=== PATIENT | female | born 1970 | race Caucasian/White ===

== ENCOUNTER 2025-06-19 21:12 | Inpatient (IN) | payer BC, SELFPAY ==
[2025-06-19] VITALS (16 sets, daily range): BP systolic 145–178; BP diastolic 77–110; BMI 31.0; BMI 30.2
[2025-06-19 10:47] LABS: Glucose - Point of Care 547 mg/dl (70-99)
[2025-06-19 12:01] LABS: Hematocrit 32.9 % (37.0-47.0); Hemoglobin 11.2 g/dL (12.0-16.0); Mean Corp Hgb Conc. 34.0 g/dL (33.0-37.0); Mean Corpuscular Volume 79.7 fL (81.0-99.0); Nucleated Red Blood Cells % 0 %; Red Cell Dist. Width 14.8 % (11.5-14.5)
[2025-06-19 12:24] LABS: ALT (SGPT) 17 U/L (0-35); AST (SGOT) 24 U/L (14-36); Albumin 3.7 g/dl (3.5-5.0); Alkaline Phosphatase 163 U/L (38-126); Blood Urea Nitrogen 9 mg/dl (7-17); Calcium 9.6 mg/dl (8.4-10.2); Carbon Dioxide 25 mmol/L (22-30); Chloride 96 mmol/L (98-107); Estimated Creatinine Clearance 102 ml/min; Glucose 522 mg/dl (70-99); Lipase 65 U/L (23-300); Potassium 5.0 mmol/L (3.5-5.1); Sodium 129 mmol/L (135-145); Total Protein 6.8 g/dl (6.3-8.2); eGFR > 60.00
[2025-06-19 12:35] LABS: Platelet Count 350 10^3/uL (130-400)
[2025-06-19 13:54] LABS: Urine Character Clear (Clear)
[2025-06-19 14:02] LABS: Urine Squamous Cell 16-20 /LPF (Few)
[2025-06-19 14:03] LABS: Urine White Cell 0-2 /HPF (0-5); Venous Blood Gas B.E. 3.9 mmol/L (-4 to +4); Venous Blood Gas O2 Sat % 88.4 %
--- NOTE | 2025-06-19 14:17 | ED.GENMED ---
History of Present Illness
<Erasmo Fraga Jr., PA-C - Last Filed: 06/27/25 19:42>
General
Chief Complaint: Fever
Source: patient, spouse and family
Exam Limitations: none
Time Seen by Provider: 06/19/25 10:53
Nursing documentation reviewed up to this point in time: agreed with
History of Present Illness
History of Present Illness:
55-year-old female past with history of previous stroke, CHF CAD hypertension, diabetes mitral valve replacement this year [facility] presenting to the emergency department today with concerns of ongoing abdominal pain nausea vomiting
diarrhea over the past month or so. Had diagnosed appendicitis 1 month ago was seen at [facility] treated with IV antibiotics and also treated for DKA at the time. Was discharged afterward on oral antibiotics she claims that she had no
specific follow-up that was recommended from [facility]. She then saw her primary care doctor the recommended seeing a surgeon. The surgeon that she saw claimed that she did have appendicitis and would need removal and also would need a drain for an
abdominal abscess. For unclear reasons she never followed up for this but is now coming to the ER here today with terms of ongoing symptoms. Additionally her home care nurse recommended coming to [place] due to its affiliation with [facility]
concerning her heart valve replacement was done at [facility].
Review of Systems
<Erasmo Fraga Jr., PA-C - Last Filed: 06/27/25 19:42>
Review of Systems
Allergies reviewed?: Yes
All Other Systems: ROS reviewed and negative except as documented in HPI and ROS
Phy Exam
<Erasmo Fraga Jr., PA-C - Last Filed: 06/27/25 19:42>
Physical Exam
Physical Exam:
GENERAL: Alert , in no apparent distress
EYE: pupils equal and reactive
NECK: Supple, no significant adenopathy.
ENT: o/p clr, mmm.
CARDIAC: Regular rate and rhythm .
LUNGS: Clear breath sounds bilaterally, no acute respiratory distress, no wheezes/rales/rhonchi
ABDOMEN: Abdominal pain throughout the lower abdomen as well as the right side of the abdomen. No rigidity no peritoneal signs
NEUROLOGICAL: Alert and oriented, no focal neuro deficits
SKIN: Warm and dry, skin intact.
MUSCULOSKELETAL: No edema, well perfused.
PSYCH: Normal and appropriate interaction.
Course
<Erasmo Fraga Jr., DOUGLAS - Last Filed: 06/27/25 19:42>
Orders/Labs/Results
Orders:
Orders
06/19/25 11:09
0.9% Sodium Chloride 1000 ml [Nss] 1,000 ml IV BOLUS
06/19/25 11:24
B-Hydroxybutyrate Urgent
Complete Blood Count/With Diff Urgent
Comprehensive Metabolic Panel Urgent
Lactic Acid Urgent
Lipase Urgent
06/19/25 13:31
Urinalysis Reflex To Culture Urgent
Date Specimen was Collected: 06/19/25
Time Specimen was Collected: 13:27
Urine Microscopic Reflex Cult Urgent
Venous Blood Gas Urgent
06/19/25 14:03
CT Abd/Pel (IV only)-DH only Urgent
Comment:
Reason For Exam: lower abd pain, recent appendicitis no surgery
06/19/25 14:08
Bedside Glucose- Treatment Q1H
Insulin Human Regular [Novolin R] 8 units IV NOW STA
06/19/25 Dinner
2000 calorie (17 carb) Diabetic
At Your Request: Full Participation
Does patient need a safe tray?: No
06/19/25 17:11
US Pelvis W Transvag Combined Urgent
Comment:
Reason For Exam: ovarian cyst vs abscess vs appendicitis
06/19/25 20:46
Admit/Transfer Patient As Directed
Co-Sign Provider:
Level of Care: Inpatient admission
Assign to:: Medical/Surgical
Physician / Group: emma
Diagnosis: adnexal abscesses
Reason for Hospitalization: adnexal abscesses
Expected length of stay greater than two midnights?: Yes
ELOS- Estimated Length of Stay in days: 2
I certify the patient meets the requirements for IP care: Yes
06/19/25 20:47
Code Status As Directed
Resuscitation Status: Full Code
PRN Pain Medication Management As Directed
May give lesser potent ordered pain med per pt: Yes
preference::
Protocol:: Medication orders for pain may be administered in a
manner that supports deferring to patient preference
when the pt is:
- Requesting an ordered lesser potent pain medication.
Least to most potent pain medications are defined
as: acetaminophen < NSAID < tramadol < opioids
(morphine, oxycodone, hydromorphone).
- Requesting a lesser dose of the same medication IF
ORDERED.
- Requesting a less intrusive route of administration
if both routes are prescribed by the provider (PO <
IV).
06/19/25 21:44
Blood Culture Q30M
ALEXANDRE Source: Blood/Venous
Specimen Description:
06/19/25 21:52
Blood Culture Q30M
ALEXANDRE Source: Blood/Venous
Specimen Description:
06/19/25 22:43
Acetaminophen [Tylenol] 650 mg PO QID
Albuterol [ProAIR HFA INHALER] 2 puff INH R Q6HPRN PRN sob
Dextrose 50%-Water [Dextrose 50% Syringe] 12.5 grams IV [id number] PRN
Glucagon [GlucaGen] 1 mg IM PRN PRN
HYDROmorphone [Dilaudid] 0.5 mg IV Q4HPRN PRN
Ondansetron Injectable [Zofran] 4 mg IV Q6HPRN PRN
06/19/25 22:43
[employer] OPERATIONS CONSULT Routine
Consulting Provider: Sussy Egan
Was physician already notified: Yes
SURGICAL CONSULT Routine
Consulting Provider: Juan Manuel Lyon
Was physician already notified: Yes
Activity As Directed
Activity Level: As Tolerated
Bedside Glucose Monitoring As Directed
Frequency: AC&HS
Additional Instructions:: Change to q6h if pt on TPN, tube feeding or not eating
Vital Signs As Directed
Frequency: Per unit guidelines
DX Deep Vein Thrombosis Video Routine
06/20/25 07:30
Insulin Aspart Corrective Low [Novolog Flexpen-Low Resistance] See Protocol SC AC
06/20/25 08:00
Heparin 5,000 units SC Q12
Metoprolol Xl [Toprol Xl] 25 mg PO DAILY
06/20/25 08:01
CA 125 IN AM
Complete Blood Count/With Diff IN AM
Comprehensive Metabolic Panel IN AM
Glycohemoglobin (HgbA1c) IN AM
06/20/25 18:00
Losartan [Cozaar] 25 mg PO QPM
Abnormal Lab Results
06/19/25 06/19/25 06/19/25
10:46 11:24 13:31
RBC 4.13 L 10^6/uL
(4.20-5.40)
Hgb 11.2 L g/dL
(12.0-16.0)
Hct 32.9 L %
(37.0-47.0)
MCV 79.7 L fL
(81.0-99.0)
RDW 14.8 H %
(11.5-14.5)
Abs Immat Gran (auto) 0.1 H 10^3/uL
(0-0.05)
Absolute Neuts (auto) 8.3 H 10^3/uL
(1.4-6.5)
Immature Gran % 1.0 H %
(0-0.5)
Neutrophils % 79.7 H %
(42.2-75.2)
Lymphocytes % 12.5 L %
(20.5-51.1)
VBG pCO2 49 H mmHg
(35-48)
VBG pO2 56 H mmHg
(30-50)
VBG HCO3 29.7 H mmol/L
(22-27)
Sodium 129 L mmol/L
(135-145)
Chloride 96 L mmol/L
(98-107)
Creatinine 0.5 L mg/dL
(0.6-1.0)
Glucose 522 H* mg/dl
(70-99)
Alkaline Phosphatase 163 H U/L
(38-126)
Urine Ketones 3+ A
(Negative)
Ur Occult Blood Reflex 2+ A
(Negative)
Urine RBC 3-6 A /HPF
(0-2)
Urine Bacteria (Reflex) Few A
(Negative)
Urine Glucose 4+ A
(Negative)
Urine Albumin (Reflex) 2+ A
(Neg - Trace)
B-Hydroxybutyrate 1.50 H mmol/L
(0.02-0.27)
POC Glucose 547 H* mg/dl
(70-99)
06/19/25 06/19/25 06/19/25
15:29 16:36 18:11
RBC
Hgb
Hct
MCV
RDW
Abs Immat Gran (auto)
Absolute Neuts (auto)
Immature Gran %
Neutrophils %
Lymphocytes %
VBG pCO2
VBG pO2
VBG HCO3
Sodium
Chloride
Creatinine
Glucose
Alkaline Phosphatase
Urine Ketones
Ur Occult Blood Reflex
Urine RBC
Urine Bacteria (Reflex)
Urine Glucose
Urine Albumin (Reflex)
B-Hydroxybutyrate
POC Glucose 204 H mg/dl 224 H mg/dl 265 H mg/dl
(70-99) (70-99) (70-99)
06/19/25 11:24
06/19/25 11:24
Vital Signs
Initial and Last Documented VS:
Initial Vital Signs
Temp Pulse Resp BP Pulse Ox
98.6 F 90 18 161/88 99
06/19/25 10:34 06/19/25 10:34 06/19/25 10:34 06/19/25 10:34 06/19/25 10:34
Last Documented Vital Signs
Temp Pulse Resp BP Pulse Ox
97.8 F 84 16 123/77 98
06/25/25 15:38 06/25/25 15:38 06/25/25 15:38 06/25/25 15:38 06/25/25 15:38
<Mali Huff, VENETIAN BLIND MACHINE OPERATOR - Last Filed: 06/20/25 15:37>
Orders/Labs/Results
Orders:
Orders
06/19/25 11:09
0.9% Sodium Chloride 1000 ml [Nss] 1,000 ml IV BOLUS
06/19/25 11:24
B-Hydroxybutyrate Urgent
Complete Blood Count/With Diff Urgent
Comprehensive Metabolic Panel Urgent
Lactic Acid Urgent
Lipase Urgent
06/19/25 13:31
Urinalysis Reflex To Culture Urgent
Date Specimen was Collected: 06/19/25
Time Specimen was Collected: 13:27
Urine Microscopic Reflex Cult Urgent
Venous Blood Gas Urgent
06/19/25 14:03
CT Abd/Pel (IV only)-DH only Urgent
Comment:
Reason For Exam: lower abd pain, recent appendicitis no surgery
06/19/25 14:08
Bedside Glucose- Treatment Q1H
Insulin Human Regular [Novolin R] 8 units IV NOW STA
06/19/25 Dinner
2000 calorie (17 carb) Diabetic
At Your Request: Full Participation
Does patient need a safe tray?: No
06/19/25 17:11
US Pelvis W Transvag Combined Urgent
Comment:
Reason For Exam: ovarian cyst vs abscess vs appendicitis
06/19/25 20:46
Admit/Transfer Patient As Directed
Co-Sign Provider:
Level of Care: Inpatient admission
Assign to:: Medical/Surgical
Physician / Group: emma
Diagnosis: adnexal abscesses
Reason for Hospitalization: adnexal abscesses
Expected length of stay greater than two midnights?: Yes
ELOS- Estimated Length of Stay in days: 2
I certify the patient meets the requirements for IP care: Yes
06/19/25 20:47
Code Status As Directed
Resuscitation Status: Full Code
PRN Pain Medication Management As Directed
May give lesser potent ordered pain med per pt: Yes
preference::
Protocol:: Medication orders for pain may be administered in a
manner that supports deferring to patient preference
when the pt is:
- Requesting an ordered lesser potent pain medication.
Least to most potent pain medications are defined
as: acetaminophen < NSAID < tramadol < opioids
(morphine, oxycodone, hydromorphone).
- Requesting a lesser dose of the same medication IF
ORDERED.
- Requesting a less intrusive route of administration
if both routes are prescribed by the provider (PO <
IV).
06/19/25 21:44
Blood Culture Q30M
ALEXANDRE Source: Blood/Venous
Specimen Description:
06/19/25 21:52
Blood Culture Q30M
ALEXANDRE Source: Blood/Venous
Specimen Description:
06/19/25 22:43
Acetaminophen [Tylenol] 650 mg PO QID
Albuterol [ProAIR HFA INHALER] 2 puff INH R Q6HPRN PRN sob
Dextrose 50%-Water [Dextrose 50% Syringe] 12.5 grams IV [id number] PRN
Glucagon [GlucaGen] 1 mg IM PRN PRN
HYDROmorphone [Dilaudid] 0.5 mg IV Q4HPRN PRN
Ondansetron Injectable [Zofran] 4 mg IV Q6HPRN PRN
06/19/25 22:43
[employer] OPERATIONS CONSULT Routine
Consulting Provider: Sussy Egan
Was physician already notified: Yes
SURGICAL CONSULT Routine
Consulting Provider: Juan Manuel Lyon
Was physician already notified: Yes
Activity As Directed
Activity Level: As Tolerated
Bedside Glucose Monitoring As Directed
Frequency: AC&HS
Additional Instructions:: Change to q6h if pt on TPN, tube feeding or not eating
Vital Signs As Directed
Frequency: Per unit guidelines
DX Deep Vein Thrombosis Video Routine
06/20/25 07:30
Insulin Aspart Corrective Low [Novolog Flexpen-Low Resistance] See Protocol SC AC
06/20/25 08:00
Heparin 5,000 units SC Q12
Metoprolol Xl [Toprol Xl] 25 mg PO DAILY
06/20/25 08:01
CA 125 IN AM
Complete Blood Count/With Diff IN AM
Comprehensive Metabolic Panel IN AM
Glycohemoglobin (HgbA1c) IN AM
06/20/25 18:00
Losartan [Cozaar] 25 mg PO QPM
Abnormal Lab Results
06/19/25 06/19/25 06/19/25
10:46 11:24 13:31
RBC 4.13 L 10^6/uL
(4.20-5.40)
Hgb 11.2 L g/dL
(12.0-16.0)
Hct 32.9 L %
(37.0-47.0)
MCV 79.7 L fL
(81.0-99.0)
RDW 14.8 H %
(11.5-14.5)
Abs Immat Gran (auto) 0.1 H 10^3/uL
(0-0.05)
Absolute Neuts (auto) 8.3 H 10^3/uL
(1.4-6.5)
Immature Gran % 1.0 H %
(0-0.5)
Neutrophils % 79.7 H %
(42.2-75.2)
Lymphocytes % 12.5 L %
(20.5-51.1)
VBG pCO2 49 H mmHg
(35-48)
VBG pO2 56 H mmHg
(30-50)
VBG HCO3 29.7 H mmol/L
(22-27)
Sodium 129 L mmol/L
(135-145)
Chloride 96 L mmol/L
(98-107)
Creatinine 0.5 L mg/dL
(0.6-1.0)
Glucose 522 H* mg/dl
(70-99)
Alkaline Phosphatase 163 H U/L
(38-126)
Urine Ketones 3+ A
(Negative)
Ur Occult Blood Reflex 2+ A
(Negative)
Urine RBC 3-6 A /HPF
(0-2)
Urine Bacteria (Reflex) Few A
(Negative)
Urine Glucose 4+ A
(Negative)
Urine Albumin (Reflex) 2+ A
(Neg - Trace)
B-Hydroxybutyrate 1.50 H mmol/L
(0.02-0.27)
POC Glucose 547 H* mg/dl
(7099)
06/19/25 06/19/25 06/19/25
15:29 16:36 18:11
RBC
Hgb
Hct
MCV
RDW
Abs Immat Gran (auto)
Absolute Neuts (auto)
Immature Gran %
Neutrophils %
Lymphocytes %
VBG pCO2
VBG pO2
VBG HCO3
Sodium
Chloride
Creatinine
Glucose
Alkaline Phosphatase
Urine Ketones
Ur Occult Blood Reflex
Urine RBC
Urine Bacteria (Reflex)
Urine Glucose
Urine Albumin (Reflex)
B-Hydroxybutyrate
POC Glucose 204 H mg/dl 224 H mg/dl 265 H mg/dl
(70-99) (99) (99)
06/19/25 11:24
06/19/25 11:24
Vital Signs
Initial and Last Documented VS:
Initial Vital Signs
Temp Pulse Resp BP Pulse Ox
98.6 F 90 18 161/88 99
06/19/25 10:34 06/19/25 10:34 06/19/25 10:34 06/19/25 10:34 06/19/25 10:34
Last Documented Vital Signs
Temp Pulse Resp BP Pulse Ox
97.8 F 84 16 123/77 98
06/25/25 15:38 06/25/25 15:38 06/25/25 15:38 06/25/25 15:38 06/25/25 15:38
<Erasmo Fraga Jr., PA-C - Last Filed: 06/27/25 19:42>
MDM/Problems Addressed
MDM/Problems Addressed:
55-year-old female presenting with concerns of ongoing abdominal pain after being diagnosed with appendicitis a month ago treated with antibiotics. On arrival sugar level significantly elevated in the 500s. Patient was started on fluids. Labs
showing no evidence of DKA normal pH. Potassium level normal patient given dose of insulin. Additional plans for CT scan for further assessment.
<Mali Huff NP - Last Filed: 06/20/25 15:37>
MDM/Problems Addressed
MDM/Problems Addressed:
55-year-old female presenting with concerns of ongoing abdominal pain after being diagnosed with appendicitis a month ago treated with antibiotics. On arrival sugar level significantly elevated in the 500s. Patient was started on fluids. Labs
showing no evidence of DKA normal pH. Potassium level normal patient given dose of insulin. Additional plans for CT scan for further assessment.
7:20 p.m.
Accepted pt from [facility]. Pt was given insulin for her hyperglycemia. Corrected Na+136. Is comfortable, NAD
The patient is a 55-year-old female presenting with suspected abscesses as identified by ultrasound. She reports consistent pain localized to the right abdomen. Symptoms started around May 23, seen at [facility], told she may have abscess of
appendix, leading to abscesses believed to be in the intestines. Initially, there was a plan for the appendix to be removed, but at the time pt states she mistakenly told them her appendix was already removed. She now states she never had her
appendix removed. Consultation with a surgeon about a week and a half ago at [facility] indicated possible drainage and later removal of the appendix if fever and vomiting continued. The patient experiences almost daily vomiting and
reported a maximum fever of 102.9�F approximately three days ago. Today, her temperature was 100.9�F.
CT scan showed : Limited by lack of enteric contrast material with unopacified small and large bowel.
Bilateral pelvic low-attenuation/complex fluid structures, as described. Possible considerations include abscess formation, which may be associated with pelvic inflammatory disease in the proper clinical setting. On the right, appendicitis with
periappendiceal abscess cannot be excluded. Alternatively, the appearance may be related to bilateral ovarian cysts and/or cystic ovarian neoplasms.
Possible minor pyelonephritis. No obstructive uropathy.
Minor diverticulosis without acute diverticulitis. No bowel obstruction.
Pt evaluted by Dr. 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
US showing: 'Limited examination.
Unremarkable sonographic appearance of the uterus.
The ovaries are not definitively visualized. There are complex lesions of the bilateral adnexa measuring 3.0 x 3.3 x 3.1 cm on the right and 5.4 x 3.7 x 7.6 cm on the left. These appear to demonstrate central free fluid and peripheral vascularity
which are suspicious for abscesses'
Hospitalist notified of admission for multiple adnexal abscesses, hyperglycemia.
<Erasmo Fraga Jr., PA-C - Last Filed: 06/27/25 19:42>
*Pulse Oximetry
SaO2: 96
Oxygen Mode of Delivery: Room air
<Mali Huff, VENETIAN BLIND MACHINE OPERATOR - Last Filed: 06/20/25 15:37>
*Pulse Oximetry
Patient hypoxic: no
*Critical Care Note
Total Time (30-74mins, 75-104mins- exclusive of procedures): Not Applicable
ED Attending Note
<Eramso Fraga Jr., PA-C - Last Filed: 06/27/25 19:42>
-
Portions of this chart may have been created with voice recognition software.� Occasional wrong word or��sound alike� substitutions may have occurred due to the inherent limitations of voice recognition software.
Discharge Plan
Departure
Patient Disposition: Admit
Date of Disposition: 06/19/25
Time of Disposition: 20:08
Admit to: Med/Surg
Presentation/result/management discussed w/ accepting MD/DO: Hospitalist
Condition: Fair
Discharge Problem:
Acute hyperglycemia, adenexa abscess
Interventions
Interventions:
*General Assessment Last Done: 06/19/25 10:34
*Neglect/Abuse Screening Last Done: 06/19/25 10:34
*ED- Fall Risk Assessment Last Done: 06/19/25 11:08
*Nursing Disposition Last Done: 06/19/25 22:08
ED- Neurological Assessment Last Done: 06/19/25 11:08
ED-Skin Assessment Last Done: 06/19/25 11:08
Discharge Date and Time
Discharge Date/Time: 06/19/25 22:39
[2025-06-19] MEDS: NSS 1000 IV (14:36)
[2025-06-19] MEDS: NOVOLIN R 8 UNITS IV (14:37)
[2025-06-19 15:31] LABS: Glucose - Point of Care 204 mg/dl (70-99)
[2025-06-19 16:38] LABS: Glucose - Point of Care 224 mg/dl (70-99)
--- NOTE | 2025-06-19 17:12 | CON.GS ---
Addendum entered and electronically signed by Juan Manuel Lyon MD 06/19/25 17:52:
I saw and examined the patient independently.
The Wheat Washer's note was reviewed and I agree with the note, assessment and plan except where noted below.
Comment: This is a 55-year-old female with a history of x 2, tubal ligation, endometriosis with prior laparoscopic surgery for management, diabetes poorly controlled, CAD status post CABG with MVR and redo MVR more recently this february on
baby aspirin with recent admission at an outside hospital for DKA and questionable appendicitis managed with antibiotics alone. There was some confusion as she told the physicians there that she had already had her appendix removed however now
realizes that she has not. She also of note has a 30 pound weight loss over the past month. Interestingly certain foods do make her vomit but other items do not. She is tender to palpation in the low right lower quadrant and reports fevers at
home up to 102. Imaging concerning for ovarian cystic collections versus intra-abdominal abscesses. She is tender to palpation in the right lower quadrant but overall her exam is reassuring.
Will begin with a vaginal ultrasound to better identify these masses. Favor ovarian mass on my read of her CT. Would also consider an MRI of the pelvis if the ultrasound is inconclusive.
If these are abscesses then recommend IR consult for percutaneous drainage, if they are ovarian in nature recommend CA125 serum level and Scenic Designer-onc consult for further workup.
Okay for p.o. diet pending imaging results.
Surgery will follow along with you.
Original Note:
Consultation
-
Date/Time Consultation Performed: 06/19/2025 1645
Medical History
-
Chief Complaint: n/v/fever
History of Present Illness:
Ms Alvarado is a 55 yo female with a h/o x2, tubal ligation, endometriosis with prior lap surgery for management, DM, CAD s/p CABG and MVR in 2018 with redo of MVR in February of this year, recently admitted at [facility] June 02 for DKA with
?appendicitis at the time managed with antibiotics. She notes that she was initially confused on her admission and does not recall all of the events but no drains were placed and she was given a short course of abx upon dc. She presents with ongoing
nausea and vomiting intermittently over the last month or so with ongoing RLQ/pelvic pain which has been stable. She reports a 30lb weight loss over the past month. She notes that some foods such as liquids make her vomit but items such as
sandwiches do not. She is tender to the pelvis and toward the RLQ. She reported a fever at home to 100.9 as taken by her home care nurse causing her to present for further evaluation. She is currently denying nausea and asking for something to eat.
Past Medical History
Past Medical History: CAD and NIDDM
Past Surgical History: Cardiac (cabg and mvr in 2018 and repeat mvr 02/2025), Gynecological ( x2, tubal ligation, laparoscopic surgery for endometriosis) and Other (last colonoscopy 1 year ago)
Social History
Living: With Family
Family History
Family History: Reviewed & Not Pertinent and Cancer (colon ca in father)
Allergies / Home Medications
Med list not available yet
Allergy/AdvReac Type Severity Reaction Status Date / Time
cefaclor (From Ceclor) Allergy Unknown Verified 06/19/25 10:41
cephalexin (From Keflex) Allergy Unknown Verified 06/19/25 10:41
clarithromycin (From Biaxin) Allergy Unknown Verified 06/19/25 10:41
Penicillins Allergy Unknown Verified 06/19/25 10:41
Review of Systems
-
History Source: Patient and Family
All other systems: Negative unless noted
A 10 point review of systems was completed, and was negative except as per HPI.
Physical Exam
Vital Signs
Temp Pulse Resp BP Pulse Ox
98.2 F 94 14 171/90 98
06/19/25 11:07 06/19/25 16:00 06/19/25 16:00 06/19/25 16:00 06/19/25 16:00
06/18/25 06/19/25 06/20/25
06:59 06:59 06:59
Actual Weight 76.7 kg
Body Mass Index (BMI) 31.0
Lab Results
06/19/25 11:24
06/19/25 11:24
WBC 10.4 10^3/uL (4.8-10.8) 06/19/25 11:24
Hgb 11.2 g/dL (12.0-16.0) L 06/19/25 11:24
Hct 32.9 % (37.0-47.0) L 06/19/25 11:24
Plt Count 350 10^3/uL (130-400) 06/19/25 11:24
Abs Immat Gran (auto) 0.1 10^3/uL (0-0.05) H 06/19/25 11:24
Neutrophils % 79.7 % (42.2-75.2) H 06/19/25 11:24
Physical Exam
General: Well Developed and Well Nourished
HEENT: Moist Mucous Membranes
Respiratory: Non Labored Respirations
GI: Soft, Non Distended and Tender (Pelvis to RLQ)
Skin: Warm and Dry
Neuro: Awake and Alert
Psych: Calm
Data Reviewed
-
CT Scan: Image Personally Visualized and interpreted, Report Reviewed by me, Discussed with Physician, Discussed with Patient and Discussed with Family
Labs: Labs Reviewed by me, Discussed with Physician, Discussed with Patient and Discussed with Family
Old Records: Reviewed
Assessment / Plan
-
55 yo female with a h/o x2, tubal ligation, endometriosis with prior lap surgery for management, DM, CAD s/p CABG and MVR in 2017 with redo of MVR in February of this year, recently admitted at [facility] June 02 for DKA with ?appendicitis at
the time managed with antibiotics. She presents for ongoing n/v/lower abdominal pain and a fever of 100.9 at home with weight loss of 30lbs
CT imaging this presentation reviewed and there are bilateral pelvic collections noted, the appendix is difficult to visualize. Suspect these are complex ovarian cysts vs abscess. Compared to prior CT report which she was able to pull up on her
phone these collections are increased in size mildly. The right was 2.8 x 2.2 and now is 2.4 by 3.2, the left was 3.1x1.9 and now is 3.6x5.2. She is afebrile here with no leukocytosis. VSS. BG was >500 on arrival, corrected with IV insulin.
Hyponatremia present. Anion gap is normal at 9.
Plan:
Admit to medicine service for primary medical management
Check pelvic US (TA and TV), Check Ca 125
May need IR drainage if US confirms presence of abscess. Would not plan surgery for her at this time.
Ongoing n/v/weight loss, ?unclear etiology although possibly gastroparesis given uncontrolled blood sugars.. May benefit from GI work up.
[2025-06-19 18:12] LABS: Glucose - Point of Care 265 mg/dl (70-99)
--- NOTE | 2025-06-19 20:58 | HPS.HSE ---
Family Physician
-
Family Physician: Abhishek Medina
Chief Complaint
-
abdominal pain
History of Present Illness
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
year, this year [facility], presenting with ongoing nausea and vomiting and lower abdominal pain and fever of 100.9. Also weight loss of 30 pounds.
She was recently admitted to [facility] on June 02 for the same symptoms of fever, right lower quadrant abdominal pain and vomiting. While she was in DKA she was confused and told the doctors that she had her appendix removed. She was
later told that she had perforated appendix but needed to wait until the inflammation went down before appendectomy could be performed.
She continued to have symptoms of nausea and vomiting and right lower quadrant abdominal pain and fever of 100.9. Denies any vaginal bleeding.
She states that her blood sugars have recently been in the 200s.
She denies smoking or alcohol or drugs.
Her paternal aunt had breast cancer.
Medical History
Past Medical History
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
year [facility])
Past Surgical History: Reports Other ( x 2, tubal ligation,laparoscopic surgery, CABG, MVR and redo repair )
Social History
Tobacco: Non-smoker
Alcohol: None
Drug: None
Family History
Family History: Not pertinent
Allergies / Home Medications
Allergies reflects when Allergies were last updated in [facility].
Home Medications with original date entered in [facility]
Allergy/Medication List:
Allergies
Allergy/AdvReac Type Severity Reaction Status Date / Time
cefaclor (From Ceclor) Allergy Unknown Verified 06/19/25 10:41
cephalexin (From Keflex) Allergy Unknown Verified 06/19/25 10:41
clarithromycin (From Biaxin) Allergy Unknown Verified 06/19/25 10:41
Penicillins Allergy Unknown Verified 06/19/25 10:41
Home Medications
acetaminophen 325 mg tablet (Tylenol) 650 mg PO QID 06/19/25
albuterol sulfate 90 mcg/actuation aerosol inhaler 2 puff inhalation R Q6HPRN PRN sob 06/19/25
evolocumab 140 mg/mL subcutaneous pen injector (Repatha SureClick) 140 mg SC Q14D 06/19/25
insulin aspart U-100 100 unit/mL (3 mL) subcutaneous pen (Novolog FlexPen U-100 Insulin aspart) 18 sliding scale dose SC AC 06/19/25
insulin degludec 100 unit/mL (3 mL) subcutaneous pen (Tresiba FlexTouch U-100 insulin) 18 unit SC BID 06/19/25
losartan 25 mg tablet 25 mg PO QPM 06/19/25
metoprolol succinate 25 mg tablet,extended release 24 hr (Toprol XL) 25 mg PO DAILY 06/19/25
prochlorperazine maleate 10 mg tablet (Compazine) 10 mg PO BIDPRN PRN nausea 06/19/25
tezepelumab-ekko 210 mg/1.91 mL (110 mg/mL) subcutaneous pen injector (Tezspire) 210 mg SC Q4W 06/19/25
valsartan 40 mg tablet 40 mg PO HS 06/19/25
Review of Systems
-
Constitutional: Reports No Symptoms
EENT: Reports No Symptoms
Respiratory: Reports No Symptoms
Cardiac: Reports No Symptoms
Abdomen/GI: Reports See HPI
: Reports No Symptoms
Musculoskeletal: Reports No Symptoms
Skin: Reports No Symptoms
Neurological: Reports No Symptoms
Endocrine: Reports No Symptoms
Hematologic/Lymphatic: Reports No Symptoms
Psych: Reports No Symptoms
Physical Exam
Vital Signs
Vital Signs
Temp Pulse Resp BP Pulse Ox
98.2 F 94 14 171/90 98
06/19/25 11:07 06/19/25 16:00 06/19/25 16:00 06/19/25 16:00 06/19/25 16:00
Physical Exam
General: Well Developed, Well Nourished and No Apparent Distress
HEENT: NormoCephalic, Moist mucous membranes and Atraumatic
Respiratory: Clear
Cardiac: S1/S2 and Regular Rhythm; No Murmur or Rub
GI: Soft, Non Tender, Non Distended and Normal Bowel Sounds; No Organomegaly
Rectal: Deferred by Provider
Musculoskeletal: No Clubbing, No Cyanosis and No Edema
Skin: No Rash
Neuro: Nonfocal/grossly intact
Laboratory Results
-
06/19/25 11:24
06/19/25 11:24
Laboratory Results
Lactic Acid 1.3 mmol/L (0.7-2.0) 06/19/25 11:24
Total Bilirubin 0.6 mg/dl (0.2-1.3) 06/19/25 11:24
AST 24 U/L (14-36) 06/19/25 11:24
ALT 17 U/L (0-35) 06/19/25 11:24
Alkaline Phosphatase 163 U/L (38-126) H 06/19/25 11:24
Lipase 65 U/L (23-300) 06/19/25 11:24
Data Reviewed
-
Lab Data: Labs Reviewed by me
Old Records: Reviewed
Impression/Plan
-
IMPRESSION:
PLAN:
# Bilateral adnexal collections possibly abscesses versus ovarian masses versus endometriosis
-Patient without fever here, does not meet sepsis criteria
-CT abdomen pelvis shows bilateral pelvic low-attenuation/complex fluid structures which include abscess formation may be associated pelvic inflammatory disease versus bilateral ovarian cysts or ovarian neoplasms,, appendicitis with periappendiceal
abscess cannot be excluded
- Pelvic ultrasound shows complex lesions of the bilateral adnexa which appear to demonstrate central free fluid and peripheral vascularity suggestive abscesses
- CA125 pending
- Patient seen by general surgery who is following
- May need MRI pelvis and subsequent IR drainage of abscesses
- Gynecology consulted recommended cervical culture before starting antibiotics
-Check blood cultures
- Zofran, Dilaudid
# Hyperglycemia secondary to infection
# Type 2 diabetes
-No lab findings of DKA
- Continue Tresiba 18 units twice daily
-Insulin sliding scale
- Check A1c
History of x 2
History of tubal ligation
History of endometriosis with prior laparoscopic surgery
CAD status post CABG
- Continue metoprolol
History of heart failure
- On losartan and valsartan, stop valsartan
Asthma
- Continue albuterol
Mitral valve replacement and redo MVR
History of hemorrhagic CVA last year
Hypercholesterolemia
Full code
DVT prophylaxis�heparin
Regular diet
[2025-06-19 22:47] LABS: Glucose - Point of Care 393 mg/dl (70-99)
--- NOTE | 2025-06-19 23:17 | PTCARENOTE ---
Recieved pt from ED. Pt ambulated from stretcher to bed. Oriented pt to floor, call chatman within reach. Pt AAOx3, VSS, Glucose 393. Notified provider. Pt care ongoing.
[2025-06-19] MEDS: LANTUS 0.18 UNITS SC (23:48)
[2025-06-19] MEDS: NOVOLOG FLEXPEN 5 UNITS SC (23:48)
[2025-06-19] MEDS: TYLENOL 650 MG PO (23:48)
[2025-06-20 01:53] LABS: Glucose - Point of Care 285 mg/dl (70-99)
[2025-06-20 07:00] VITALS: BP 157/79
[2025-06-20 07:25] LABS: Glucose - Point of Care 304 mg/dl (70-99)
--- NOTE | 2025-06-20 07:35 | W.PN.HOSP.TC ---
Today's Communication/Plan
-
See A/P
Assessment / Plan
Assessment / Plan
Assessment/plan
#Bilateral adnexal collections possibly abscess VS ovarian mass
-CT abdomen pelvis with IV only�shows bilateral pelvic low-attenuation/complex fluid structures which include abscess formation may be associated pelvic inflammatory disease versus bilateral ovarian cysts or ovarian neoplasms,, appendicitis with
periappendiceal abscess cannot be excluded
-Pelvic ultrasound shows complex lesions of the bilateral adnexa which appear to demonstrate central free fluid and peripheral vascularity suggestive abscesses
-CA125 pending
-Evaluated by gynecology who recommended cervical culture, pending
-Check chlamydia, gonorrhea
-Antibiotics with gentamicin, clindamycin, doxycycline
-Consult ID
-Blood cultures pending
-Pain medication with Dilaudid as needed, Zofran as needed
-Check CT abdomen pelvis with oral
#T2DM with severe hyperglycemia
-A1c pending
-Continue SODA TESTER Lantus, dosage increased to 24 units twice daily
-Coverage with SSI (high)
Consult diabetes nurse practitioner on Friday 06/22
#History of x 2
#History of tubal ligation
#History of endometriosis with prior laparoscopic surgery
#CAD status post CABG
-Denies chest pain
-Continue metoprolol
#Essential hypertension
-Continue SODA TESTER metoprolol
-On losartan and valsartan, stop valsartan
#Asthma
-Not in acute exacerbation
-Continue albuterol
#Mitral valve replacement and redo MVR
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
CODE STATUS full code
DVT prophylaxis heparin subcu
Anticipated Discharge: > 48 hours
Subjective/Interval History
-
Date of Service: June 20, 2025
Objective Data
-
Labs:
Laboratory Results
06/20/25
06:00
WBC Pending
Hgb Pending
Hct Pending
Plt Count Pending
Sodium Pending
Potassium Pending
Chloride Pending
Carbon Dioxide Pending
BUN Pending
Creatinine Pending
Glucose Pending
Calcium Pending
Total Bilirubin Pending
AST Pending
ALT Pending
Alkaline Phosphatase Pending
Vital Signs:
Vital Signs
Temp Pulse Resp BP Pulse Ox
98.3 F 99 20 167/82 95
06/19/25 22:51 06/19/25 22:51 06/19/25 22:51 06/19/25 22:51 06/20/25 00:07
Review of Systems
-
All other systems: Reviewed and negative (Except as documented)
Physical Exam
-
General: Well Developed and Well Nourished
HEENT: Normocephalic
Respiratory: Clear to Auscultation
Cardiac: Regular Rhythm and S1/S2
GI: Soft, Nondistended, Normal Bowel Sounds and Tender
Musculoskeletal: No Edema
Neuro: Awake, Alert, Oriented and AO x 3
Psych: Calm
[2025-06-20] MEDS: LANTUS 0.18 UNITS SC (08:50)
[2025-06-20] MEDS: NOVOLOG FLEXPEN-LOW RESISTANCE 4 UNITS SC (08:51)
[2025-06-20 08:52] LABS: Hematocrit 32.6 % (37.0-47.0); Hemoglobin 10.7 g/dL (12.0-16.0); Mean Corp Hgb Conc. 32.8 g/dL (33.0-37.0); Mean Corpuscular Volume 81.5 fL (81.0-99.0); Nucleated Red Blood Cells % 0 %; Platelet Count 364 10^3/uL (130-400); Red Cell Dist. Width 15.2 % (11.5-14.5)
[2025-06-20] MEDS: HEPARIN 5000 UNITS SC ×2 (08:52→20:57)
[2025-06-20] MEDS: TYLENOL 650 MG PO ×4 (08:52→21:03)
[2025-06-20] MEDS: TOPROL XL 25 MG PO (08:52)
[2025-06-20 09:08] LABS: ALT (SGPT) 16 U/L (0-35); AST (SGOT) 21 U/L (14-36); Albumin 3.4 g/dl (3.5-5.0); Alkaline Phosphatase 147 U/L (38-126); Blood Urea Nitrogen 5 mg/dl (7-17); Calcium 9.2 mg/dl (8.4-10.2); Carbon Dioxide 24 mmol/L (22-30); Chloride 99 mmol/L (98-107); Estimated Creatinine Clearance 100 ml/min; Glucose 354 mg/dl (70-99); Potassium 4.4 mmol/L (3.5-5.1); Sodium 132 mmol/L (135-145); Total Protein 6.4 g/dl (6.3-8.2); eGFR > 60.00
--- NOTE | 2025-06-20 09:42 | W.PN.UPDATE ---
Update Note
Progress Note Update
I saw and evaluated the patient. I reviewed the resident�s note and agree with findings and plan as documented in the resident�s note.
Abdominal pain is improved after Tylenol.
Gen: NAD, AAOx3.
Eyes: EOMI, PERRLA, no scleral icterus.
Neck: supple.
CV: RRR, +S1/S2, no m/r/g.
Resp: CTAB, no rales, wheezes, or rhonchi.
Abd: +BS, soft, NT, ND
Skin: No rashes.
Neuro: CN 2-12 intact, non-focal.
Psych: Normal mood and affect.
Bilateral adnexal collections possibly abscesses versus ovarian masses versus endometriosis:
-afebrile, minimal leukocytosis
-CT A/P shows bilateral pelvic low-attenuation/complex fluid structures which include abscess formation may be associated pelvic inflammatory disease versus bilateral ovarian cysts or ovarian neoplasms,, appendicitis with periappendiceal abscess
cannot be excluded
-Pelvic ultrasound shows complex lesions of the bilateral adnexa which appear to demonstrate central free fluid and peripheral vascularity suggestive abscesses
-CAN PUSHER saw in c/s and discussed with IR. B/L adnexal collections likely abscesses related to h/o appendicitis.
-check CT A/P with PO contrast
-started on gent/clinda/doxy
-c/s ID
-follow BCxs
-Zofran/Dilaudid PRN
DM2:
-with severe hyperglycemia
-check a1c
-change SSI to high-res
-increase Lantus to 24U BID
-diabetes [employer] c/s 06/22/25
Other problems:
CAD s/p CABG: cont BB
CHF, unknown type: cont ARB/BB
Asthma, not in acute exac: cont albuterol
h/o MV replacement and redo MVR
h/o hemorrhagic CVA
HLD
Obesity due to excess calories
h/o x 2
h/o tubal ligation
h/o endometriosis with prior laparoscopic surgery
FULL/heparin
[2025-06-20] MEDS: OMNIPAQUE 50 ML PO (10:36)
[2025-06-20] MEDS: VIBRAMYCIN 100 MG PO (10:37)
[2025-06-20 10:52] LABS: Glycohemoglobin (HgbA1c) 14.0 % (4.0-5.6)
[2025-06-20] MEDS: CLEOCIN 50 IV (10:52)
[2025-06-20] MEDS: GENTAMICIN 59.375 MG IV (12:00)
[2025-06-20 12:09] LABS: Glucose - Point of Care 282 mg/dl (70-99)
--- NOTE | 2025-06-20 12:14 | CON.MD ---
Addendum entered and electronically signed by Adriana Wolfe MD 06/21/25 12:47:
40 mins spent in discussion with patient, review of data, coordination of care and documentation
Original Note:
Consultation - Medical
-
55yo who was admitted yesterday for abdominal pain, n/v for the past month. OF note, she was admitted at [facility] a month ago for DKA and suspected ruptured appendicitis. She completed a 2 week course of antibiotics. States she f/u
with a Colorectal surgeon and was told that possible surgery is needed but would need a repeat CT scan in 3 months before plan would be confirmed. She however presented to the ER yesterday because she felt that she was getting progressively worse.
She denies abnormal discharge from the vagina. Has been taking tylenol to help with the pain. +loose BM.
PMHx: Stroke, CHF, CAD, HTN, Uncontrolled DM, appendicitis, asthma, HLD
PSHx: mitral valve replacement, CABG, Laparoscopy for Endometriosis.
Asthma, not in acute exac: cont albuterol
POBHx: C/S x2
PGYNHx: Menopause approx 10 years ago, no PMB
FHx: NOn Contributory
All: PCN, Clarithromycin, Keflex, Ceclor
SHx: Neg x3
Meds: See Medication List
ROS: per HPI
Vitals, Labs and Imaging as below
Gen: nad well appearing
Abd: soft, nd, +ttp especially in the RLQ > LLQ
SSE: scant white physiologic appearing discharge in vagina; normal appearing cervix.
SVE: no CMT, +TTP in the R>L adnexa
A/P: 55yo with ?Pelvic Abscess vs Ovarian Mass
-[employer] consulted given concern for pelvic abscess vs ovarian mass. Given her recent reported h/o ruptured appendix, it seems more likely that we are dealing with a pelvic abscess. I spoke with IR about this case to see if they can review images and
give me their take on abscess vs mass. He felt that this is more likely an abscess but recommended getting a CT with oral contrast to get a better visualization of the bowel to better determine ability to place a drain. This was relayed to
Hospitalist and imaging study was ordered.
-Gc-CT and Vaginal culture ordered
-CA 125 pending.
-Patient started on Gent/Clind/Doxycycline
-Gen Surgery also following
-Continue care of her other medical problems per primary team.
Consultation
-
Date/Time Consultation Requested: 06/19/25
Date/Time Consultation Performed: 06/20/25
Performing Provider: Dr. Cox
Reason for Consultation: Pelvic Abscess
Vital Signs / Labs
-
Vital Signs and Labs:
Temp Pulse Resp BP Pulse Ox
97.8 F 97 17 157/79 98
06/20/25 07:00 06/20/25 08:52 06/20/25 07:00 06/20/25 08:52 06/20/25 07:00
06/20/25 08:01
06/20/25 08:01
06/19/25 06/19/25 06/19/25
11:24 13:31 15:29
WBC
RBC
Hgb
Hct
MCH
MCHC
RDW
Abs Immat Gran (auto)
Absolute Neuts (auto)
Immature Gran %
Neutrophils %
Lymphocytes %
VBG pCO2 49 H
VBG pO2 56 H
VBG HCO3 29.7 H
Sodium 129 L
Chloride 96 L
BUN
Creatinine 0.5 L
Glucose 522 H*
Hemoglobin A1c
Alkaline Phosphatase 163 H
Albumin
Urine Ketones 3+ A
Ur Occult Blood Reflex 2+ A
Urine RBC 3-6 A
Urine Bacteria (Reflex) Few A
Urine Glucose 4+ A
Urine Albumin (Reflex) 2+ A
B-Hydroxybutyrate 1.50 H
POC Glucose 204 H
06/19/25 06/19/25 06/19/25
16:36 18:11 22:46
WBC
RBC
Hgb
Hct
MCH
MCHC
RDW
Abs Immat Gran (auto)
Absolute Neuts (auto)
Immature Gran %
Neutrophils %
Lymphocytes %
VBG pCO2
VBG pO2
VBG HCO3
Sodium
Chloride
BUN
Creatinine
Glucose
Hemoglobin A1c
Alkaline Phosphatase
Albumin
Urine Ketones
Ur Occult Blood Reflex
Urine RBC
Urine Bacteria (Reflex)
Urine Glucose
Urine Albumin (Reflex)
B-Hydroxybutyrate
POC Glucose 224 H 265 H 393 H
06/20/25 06/20/25 06/20/25
01:51 07:23 08:01
WBC 11.2 H
RBC 4.00 L
Hgb 10.7 L
Hct 32.6 L
MCH 26.8 L
MCHC 32.8 L
RDW 15.2 H
Abs Immat Gran (auto) 0.1 H
Absolute Neuts (auto) 9.0 H
Immature Gran % 1.1 H
Neutrophils % 80.6 H
Lymphocytes % 10.7 L
VBG pCO2
VBG pO2
VBG HCO3
Sodium 132 L
Chloride
BUN 5 L
Creatinine 0.4 L
Glucose 354 H
Hemoglobin A1c 14.0 H
Alkaline Phosphatase 147 H
Albumin 3.4 L
Urine Ketones
Ur Occult Blood Reflex
Urine RBC
Urine Bacteria (Reflex)
Urine Glucose
Urine Albumin (Reflex)
B-Hydroxybutyrate
POC Glucose 285 H 304 H
06/20/25
12:07
WBC
RBC
Hgb
Hct
MCH
MCHC
RDW
Abs Immat Gran (auto)
Absolute Neuts (auto)
Immature Gran %
Neutrophils %
Lymphocytes %
VBG pCO2
VBG pO2
VBG HCO3
Sodium
Chloride
BUN
Creatinine
Glucose
Hemoglobin A1c
Alkaline Phosphatase
Albumin
Urine Ketones
Ur Occult Blood Reflex
Urine RBC
Urine Bacteria (Reflex)
Urine Glucose
Urine Albumin (Reflex)
B-Hydroxybutyrate
POC Glucose 282 H
Imaging Data
-
CT A/P: In the anterior right mid pelvis, there is a low-attenuation structure measuring 3.2 cm AP by 2.4 cm transverse by 2.3 cm craniocaudal. This is situated near the posterior inferior cecal margin, though also in the right adnexal region. There
is a somewhat elongated fluid attenuation structure immediately adjacent to the posterior inferior margin extending slightly more posterior and inferior to the pelvis measuring approximately 4 cm in length with a diameter of 1.4 cm. It is uncertain
if this represents a segment of distended appendix, or an adjacent loop of fluid-filled unopacified traversing small bowel.
In the left adnexal region, there is a low-attenuation structure measuring 5 cm transverse by 4.1 cm AP by 4.4 cm transverse. Slightly complex appearance, with slightly irregular margins and subtle septation at the peripheral margin suggested. The
right lateral margin of this lesion is contiguous with the uterus, which is deviated slightly to the right of midline. The uterus is otherwise unremarkable in appearance.
Impression:
Limited by lack of enteric contrast material with unopacified small and large bowel.
Bilateral pelvic low-attenuation/complex fluid structures, as described. Possible considerations include abscess formation, which may be associated with pelvic inflammatory disease in the proper clinical setting. On the right, appendicitis with
periappendiceal abscess cannot be excluded. Alternatively, the appearance may be related to bilateral ovarian cysts and/or cystic ovarian neoplasms.
Possible minor pyelonephritis. No obstructive uropathy.
Minor diverticulosis without acute diverticulitis. No bowel obstruction.
Pelvic US: Uterus: 9.5 x 4.3 x 4.1 cm. Homogeneous myometrium without discrete lesion.
Endometrial stripe: Not definitely visualized.
Ovaries: Not definitely visualized. There is a complex lesion in the right adnexa measuring 3.0 x 3.3 x 3.1 cm. This demonstrates peripheral flow. There is a 5.4 x 3.7 x 7.6 cm complex lesion of the left adnexa with central fluid and peripheral flow.
No pelvic free fluid.
[2025-06-20] MEDS: NOVOLOG FLEXPEN-HIGH RESISTANCE 7 UNITS SC (14:15)
--- NOTE | 2025-06-20 14:21 | CON.ID ---
Consultation
-
Date/Time Consultation Requested: June 20, 2025 0953
Date/Time Consultation Performed: June 20, 2025 1430
Requesting Provider: Dr. Torres
Performing Provider: Dr. Elisa Berkowitz
Reason for Consultation: Appendicitis
Chief Complaint / Past History
Chief Complaint
Persistent lower abdominal pain
History of Present Illness
55-year-old female with history of uncontrolled diabetes mellitus, CAD, mitral valve replacement, endometriosis who presented to the ER yesterday due to persistent right lower quadrant abdominal pain with nausea and vomiting. She reports that she
has been having the right lower quadrant abdominal pain for about a month. She has poor appetite, persistent nausea and vomiting. She lost 30 pounds during this time. Positive fevers and chills. No diarrhea. She was admitted to [facility] in [facility] and found to have perforated appendicitis. Surgery recommended conservative the management. She was discharged on levofloxacin and metronidazole for which she completed about 2 weeks ago. However she has not improved with
persistent symptoms and fevers. She therefore came to our hospital and yesterday. Glucose was 522. Sodium 129. White count 11.2. CAT scan of the abdomen pelvis without oral contrast: appendicitis, bilateral adnexal complex fluid. Transvaginal
ultrasound showed bilateral adnexal complex lesions suspicious for abscesses. She was seen by [employer], no cervical motion tenderness, positive bilateral pelvic tenderness right greater than left. Patient denies STD risk factors. She lives with her
and children. No vaginal discharge.
Past History
Additional Past Medical History:
Diabetes mellitus
Asthma
Hemorrhagic CVA
CAD status post CABG
Mitral valve replacement 2018 with redo bio-MVR 02/2025
Endometriosis, history of laparoscopic surgery
x 2
Tubal ligation
Allergy History:
cefaclor (From Ceclor) Allergy (Verified 06/19/25 10:41)
Unknown
cephalexin (From Keflex) Allergy (Verified 06/19/25 10:41)
Unknown
clarithromycin (From Biaxin) Allergy (Verified 06/19/25 10:41)
Unknown
Penicillins Allergy (Verified 06/19/25 10:41)
Unknown
Medications Reviewed: Yes
Current Antibiotics:
Gentamicin
clindamycin
doxycycline
Social History
Tobacco: Non-Smoker
Alcohol: None
Personal:
Living: With Family
Family History
Family History: Not Pertinent
Review of Systems
Review of Systems
General: Fever, Chills and Change in Appetite
HEENT: Negative Sinus Problems or Headache
Cardiovascular: Negative Chest Pain or Dyspnea
Respiratory: Negative Dyspnea or Cough
Gasteroenterology: Nausea and Vomiting
Genital / Urological: Negative Dysuria or Flank Pain
Endocrine: Weight Change and Weakness
All systems: All other systems were reviewed and were negative
Vital Signs
Temp Pulse Resp BP Pulse Ox
97.8 F 97 17 157/79 98
06/20/25 07:00 06/20/25 08:52 06/20/25 07:00 06/20/25 08:52 06/20/25 07:00
Physical Exam
Physical Exam
Constitutional: No Acute Distress
Eyes: No Conjunctival Hemorrhage and Sclera Anicteric
Cardiovascular: Regular Rate and S1/S2
Pulmonary: Clear
Gastrointestinal: Soft, Tender (RLQ> mid abd> LLQ ), Non Distended and Decreased Bowel Sounds
Genito-Urinary: Negative CVA Tenderness
Extremities: Negative Edema
Neurological: AO x 3
Lab / Diagnostic Study Results
06/20/25 08:01
06/20/25 08:01
Abs Immat Gran (auto) 0.1 10^3/uL (0-0.05) H 06/20/25 08:01
Absolute Neuts (auto) 9.0 10^3/uL (1.4-6.5) H 06/20/25 08:01
Absolute Lymphs (auto) 1.2 10^3/uL (1.2-3.4) 06/20/25 08:01
Absolute Monos (auto) 0.6 10^3/uL (0.1-0.6) 06/20/25 08:01
Absolute Basos (auto) 0.0 10^3/uL (0-0.2) 06/20/25 08:01
Immature Gran % 1.1 % (0-0.5) H 06/20/25 08:01
Neutrophils % 80.6 % (42.2-75.2) H 06/20/25 08:01
Lymphocytes % 10.7 % (20.5-51.1) L 06/20/25 08:01
Monocytes % 5.7 % (1.7-9.3) 06/20/25 08:01
Eosinophils % 1.5 % (0-6) 06/20/25 08:01
Basophils % 0.4 % (0-2) 06/20/25 08:01
Lactic Acid 1.3 mmol/L (0.7-2.0) 06/19/25 11:24
Ur Squamous Epith Cells 16-20 /LPF (Few) 06/19/25 13:31
Microbiology Results
Micro:
06/20/25 13:07 Chlamydia trachomatis (PCR) - Pending
Endo-cervical Neisseria gonorrhoeae (PCR) - Pending
06/20/25 13:06 Genital Culture - Pending
Vagina
06/19/25 21:52 Blood Culture - Pending
Blood/Venous
06/19/25 21:44 Blood Culture - Pending
Blood/Venous
06/19/25 23:53 MRSA Screen - Pending
Nose
06/19/25 CT a/p: Limited by lack of enteric contrast material with unopacified small and large bowel. Bilateral pelvic low-attenuation/complex fluid structures, as described. Possible considerations include abscess formation, which may be associated
with pelvic inflammatory disease in the proper clinical setting. On the right, appendicitis with periappendiceal abscess cannot be excluded. Alternatively, the appearance may be related to bilateral ovarian cysts and/or cystic ovarian neoplasms.
06/19/25 Pelvic/transvaginal ultrasound: The ovaries are not definitively visualized. There are complex lesions of the bilateral adnexa measuring 3.0 x 3.3 x 3.1 cm on the right and 5.4 x 3.7 x 7.6 cm on the left. These appear to demonstrate central
free fluid and peripheral vascularity which are suspicious for abscesses.
Assessment / Plan
# Perforated appendicitis
# Suspect pelvic abscesses
# Leukocytosis
# Uncontrolled DM A1c 14
# Anaphylaxis to PCN, cephalosporin
- blood cx's pending
- CT a/p with po and IV contrast result pending
- Drain pelvic abscess - sent cx's.
- DC gent, clinda, doxy
- Start meropenem 500mg IV q6.
- Trend temps/wbc
# PmHx
Diabetes mellitus
Asthma
Hemorrhagic CVA
CAD status post CABG
Mitral valve replacement 2017 with redo bio-MVR 02/2025
Endometriosis, history of laparoscopic surgery
x 2
Tubal ligation
--- NOTE | 2025-06-20 14:58 | W.PN.GS2 ---
Addendum entered and electronically signed by eBst Sosa MD 06/20/25 15:22:
I saw and examined the patient.
The FORM COVERER's note was reviewed and I agree with the note.
Comment: Pain controlled. ttp to rlq on exam. non-vis of appendix on imaging. possibly primary ovarian source (mass vs toa vs other), possibly perf appendix source though felt less likely. No plans for surgical intervention this admit, will f/u with
pt outpt. Defer pelvic collection mgmt to Fig Caprifier. Pls call with ?s
Original Note:
Today's Communication / Plan
-
no surgery planned
Assessment / Plan
-
55 yo female with uncontrolled DM (A1c 14.0) with recent admission for DKA and ?perforated appendicitis tx with abx earlier this month at [facility] presenting with persistent n/v and pelvic pain with concern for pelvic abscess vs ovarian cysts.
Mild leukocytosis
Tolerating diet
Plan:
Will defer to globe changer for management
C/W ABX
Diet as per primary team
CA [address] imaging this today pending, plans for tentative IR drainage
No plans for surgery this admission. Would plan OP follow up to discuss future appendectomy in the next few months after current pelvic process resolved
Subjective Data
-
Date of Service: June 20, 2025
PT seen and examined at bedside with Dr. Sosa. Ongoing pelvic discomfort. No n/v today.
Objective Data
-
Intake and Output
06/19/25 06/20/25 06/21/25
06:59 06:59 06:59
Intake Total 180 / 180
Balance 180 / 180
Intake:
Oral fluids 180 / 180
Other:
Number of approximated MODERATE 3
amounts of urine
Number of approximated LARGE 1
amounts of urine
Vital Signs
Temp Pulse Resp BP Pulse Ox
97.8 F 97 17 157/79 98
06/20/25 07:00 06/20/25 08:52 06/20/25 07:00 06/20/25 08:52 06/20/25 07:00
Lab Results
06/20/25 08:01
06/20/25 08:01
Calcium 9.2 mg/dl (8.4-10.2) 06/20/25 08:01
Total Bilirubin 0.4 mg/dl (0.2-1.3) 06/20/25 08:01
AST 21 U/L (14-36) 06/20/25 08:01
ALT 16 U/L (0-35) 06/20/25 08:01
Alkaline Phosphatase 147 U/L (38-126) H 06/20/25 08:01
Total Protein 6.4 g/dl (6.3-8.2) 06/20/25 08:01
Albumin 3.4 g/dl (3.5-5.0) L 06/20/25 08:01
Physical Exam
-
NAD
ABD soft, pelvic tenderness,nd
[2025-06-20 15:00] VITALS: BP 140/80
--- NOTE | 2025-06-20 16:13 | CM ---
Patient receiving care. Initial assessment completed with daughter and son. Patient lives with her , son and daughter in a 2 story home plus basement, B/B on 2nd and 10/30 bath in basement, no steps to enter. 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
ADL's and ambulation, drives. Has a SPC and B/P machine in the home. Has been receiving services with [facility] for VN. No HC-POA. No VA benefits. No Psychiatric hospitalizations. PCP is Dr. Abhishek Medina. Pharmacy is [facility].
Discharge POC: Resume [facility] VN. Referral placed.
[2025-06-20 16:21] LABS: Glucose - Point of Care 306 mg/dl (70-99)
[2025-06-20] MEDS: COZAAR 25 MG PO (18:22)
[2025-06-20] MEDS: NOVOLOG FLEXPEN-HIGH RESISTANCE 10 UNITS SC (18:22)
[2025-06-20] MEDS: STERILE WATER FOR INJECTION 10 ML IV ×2 (18:22→23:21)
[2025-06-20] MEDS: MERREM 500 MG IV ×2 (18:23→23:20)
[2025-06-20 21:03] LABS: Glucose - Point of Care 263 mg/dl (70-99)
[2025-06-20] MEDS: LANTUS 0.24 UNITS SC (21:03)
[2025-06-20 23:13] VITALS: BP 114/66
[2025-06-20 23:28] LABS: Glucose - Point of Care 361 mg/dl (70-99)
[2025-06-20] MEDS: NOVOLOG FLEXPEN-HIGH RESISTANCE 12 UNITS SC (23:33)
[2025-06-21] MEDS: STERILE WATER FOR INJECTION 10 ML IV ×4 (05:30→23:55)
[2025-06-21] MEDS: MERREM 500 MG IV ×4 (05:30→23:55)
[2025-06-21] MEDS: NOVOLOG FLEXPEN-HIGH RESISTANCE 2 UNITS SC (05:38)
[2025-06-21 05:39] LABS: Glucose - Point of Care 189 mg/dl (70-99)
[2025-06-21 06:00] VITALS: BMI 30.7
[2025-06-21 07:00] VITALS: BP 127/74
--- NOTE | 2025-06-21 07:15 | W.PN.HOSP.TC ---
Today's Communication/Plan
-
See A/P
Assessment / Plan
Assessment / Plan
Assessment/plan
#Bilateral adnexal collections possibly abscess
-CT abdomen pelvis with IV only�shows bilateral pelvic low-attenuation/complex fluid structures which include abscess formation may be associated pelvic inflammatory disease versus bilateral ovarian cysts or ovarian neoplasms,, appendicitis with
periappendiceal abscess cannot be excluded
-Pelvic ultrasound shows complex lesions of the bilateral adnexa which appear to demonstrate central free fluid and peripheral vascularity suggestive abscesses
-CA125 pending
-Gynecology following, genital cultures pending
-chlamydia, gonorrhea negative
-ID input appreciated, transition to meropenem 500 mg IV Q6 (D2)
-Blood cultures remain negative
-Pain medication with Dilaudid as needed, Zofran as needed
-For right abscess drainage by IR tomorrow 06/22
#T2DM with severe hyperglycemia
-A1c pending
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
-Coverage with SSI
-Patient to be kept n.p.o. at midnight today
-Consult diabetes nurse practitioner on Friday 06/22
#History of x 2
#History of tubal ligation
#History of endometriosis with prior laparoscopic surgery
#CAD status post CABG
-Denies chest pain
-Continue metoprolol
#Essential hypertension
-Continue PHOTOGRAPHIC HAND DEVELOPER metoprolol
-On losartan and valsartan, stop valsartan
#Asthma
-Not in acute exacerbation
-Continue albuterol
#Mitral valve replacement and redo MVR
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
CODE STATUS full code
DVT prophylaxis heparin subcu
Anticipated Discharge: > 48 hours
Subjective/Interval History
-
Date of Service: June 21, 2025
Objective Data
-
Labs:
Laboratory Results
06/21/25
06:00
WBC Pending
Hgb Pending
Hct Pending
Plt Count Pending
Sodium Pending
Potassium Pending
Chloride Pending
Carbon Dioxide Pending
BUN Pending
Creatinine Pending
Glucose Pending
Calcium Pending
Vital Signs:
Vital Signs
Temp Pulse Resp BP Pulse Ox
98.9 F 88 20 114/66 98
06/20/25 23:13 06/20/25 23:13 06/20/25 23:13 06/20/25 23:13 06/20/25 23:13
I&O
06/20/25 06/21/25 06/22/25
06:59 06:59 06:59
Intake Total 420 / 420
Balance 420 / 420
Review of Systems
-
All other systems: Reviewed and negative (Except as documented)
Physical Exam
-
General: Well Developed and Well Nourished
HEENT: Normocephalic
Respiratory: Clear to Auscultation
Cardiac: Regular Rhythm and S1/S2
GI: Soft, Nondistended, Normal Bowel Sounds and Tender
Musculoskeletal: No Edema
Neuro: Awake, Alert, Oriented and AO x 3
Psych: Calm
[2025-06-21] MEDS: HEPARIN SC ×3 (07:54→22:04)
[2025-06-21] MEDS: LANTUS 0.24 UNITS SC ×2 (07:54→21:57)
[2025-06-21] MEDS: TYLENOL 650 MG PO ×4 (07:54→21:56)
[2025-06-21] MEDS: TOPROL XL 25 MG PO (07:55)
[2025-06-21 08:45] LABS: Hematocrit 33.7 % (37.0-47.0); Hemoglobin 11.2 g/dL (12.0-16.0); Mean Corp Hgb Conc. 33.2 g/dL (33.0-37.0); Mean Corpuscular Volume 81.4 fL (81.0-99.0); Nucleated Red Blood Cells % 0 %; Platelet Count 412 10^3/uL (130-400); Red Cell Dist. Width 15.5 % (11.5-14.5)
[2025-06-21 09:09] LABS: Blood Urea Nitrogen 13 mg/dl (7-17); Calcium 8.8 mg/dl (8.4-10.2); Carbon Dioxide 27 mmol/L (22-30); Chloride 100 mmol/L (98-107); Estimated Creatinine Clearance 100 ml/min; Glucose 225 mg/dl (70-99); Magnesium 1.8 mg/dl (1.6-2.3); Potassium 4.6 mmol/L (3.5-5.1); Sodium 133 mmol/L (135-145); eGFR > 60.00
--- NOTE | 2025-06-21 10:52 | W.PN.UPDATE ---
Update Note
Progress Note Update
I saw and evaluated the patient. I reviewed the resident�s note and agree with findings and plan as documented in the resident�s note.
No new complaints.
Gen: NAD, AAOx3.
Eyes: EOMI, PERRLA, no scleral icterus.
Neck: supple.
CV: Remains RRR, +S1/S2, no m/r/g.
Resp: Remains CTAB, no rales, wheezes, or rhonchi.
Abd: Remains +BS, soft, NT, ND
Skin: No rashes.
Neuro: CN 2-12 intact, non-focal.
Psych: Normal mood and affect.
06/20/25 13:06 Vagina Genital Culture - Preliminary
06/19/25 23:53 Nose MRSA Screen - Final
No Methicillin Resistant Staphylococcus aureus isolated.
06/19/25 21:44 Blood/Venous Blood Culture - Preliminary
No Growth in 24 hours- Final report to follow
06/19/25 21:52 Blood/Venous Blood Culture - Preliminary
No Growth in 24 hours- Final report to follow
06/20/25 13:07 Endo-cervical Chlamydia trachomatis (PCR) - Final
06/20/25 13:07 Endo-cervical Neisseria gonorrhoeae (PCR) - Final
Bilateral adnexal abscesses:
-afebrile, minimal leukocytosis
-CT A/P shows bilateral pelvic low-attenuation/complex fluid structures which include abscess formation may be associated pelvic inflammatory disease versus bilateral ovarian cysts or ovarian neoplasms,, appendicitis with periappendiceal abscess
cannot be excluded
-Pelvic ultrasound shows complex lesions of the bilateral adnexa which appear to demonstrate central free fluid and peripheral vascularity suggestive abscesses
-KITMAN saw in c/s and discussed with IR. B/L adnexal collections likely abscesses related to h/o appendicitis.
-cont Meropenem as per ID
-R abscess will be drained today (pt now agreeable)
-follow BCxs NGTD
-Zofran/Dilaudid PRN
DM2:
-with severe hyperglycemia, a1c 14
-change SSI to high-res
-cont Lantus to 24U BID
-diabetes HAND WOOD SANDER c/s 06/22/25
Other problems:
CAD s/p CABG: cont BB
CHF, unknown type: cont ARB/BB
Asthma, not in acute exac: cont albuterol
h/o MV replacement and redo MVR
h/o hemorrhagic CVA
HLD
Obesity due to excess calories
h/o x 2
h/o tubal ligation
h/o endometriosis with prior laparoscopic surgery
FULL/heparin
[2025-06-21 11:04] VITALS: BMI 30.2
[2025-06-21 11:23] LABS: Glucose - Point of Care 295 mg/dl (70-99)
--- NOTE | 2025-06-21 12:11 | W.PN.OBG.DWH ---
Today's Communication / Plan
-
NPO after MN for drain placement
Meropenem for tx of pelvic abscess.
20 mins spent with patient and documenting.
Assessment/Plan
-
A/P: 55yo with likely Pelvic Abscess most likely related Previous ruptured appendicitis.
-CT A/P with oral contrast done yesterday. Per IR able to drain one of the abscesses however the other has overlying bowel so can reimage in a couple days to see if he would be able to get to it then. On discussion with patient today she is very
hesitant about getting the drain and actually ate breakfast this morning. She says the Gen surg team felt that she likely has an ovarian neoplasm and is very nervous that placing the drain will 'seed cancer'. Given her history over the last month I
am of the opinion that this is more likely a persistent and progressing pelvic infection. Even if there were an underlying malignancy we still have to deal with her infection. She has already failed 2 weeks of antibiotics outpatient so drainage is
the best next step in trying to clear this infection. If not she runs a high risk of developing sepsis. Explained once drain is placed culture and cytology of the fluid can be done to look for infection or malignant cells. Surgery is not recommended
at this time in someone with an active infection. Patient expressed understanding and ultimately seemed willing to proceed with Drain.
-I.R updated that given she ate today, they will plan for drain placement tomorrow
-Gc-CT Negative
-Prelim Blood Cx Neg
-Vaginal culture pending.
-CA 125 pending.
-Appreciate ID consult. Abx changed to Meropenem
-Trend WBC and Fevers
-Continue care of her other medical problems per primary team.
Subjective Data
-
feels the same,. abdominal pain, no new fever/ chills.
Objective Data
-
Laboratory Results
06/21/25 07:52
06/21/25 07:52
Vital Signs
Temp Pulse Resp BP Pulse Ox
98.5 F 85 16 127/74 97
06/21/25 07:00 06/21/25 07:55 06/21/25 07:00 06/21/25 07:55 06/21/25 07:00
Gc-CT NEG
Vaginal Cx Pending
Blood Cx: NG x24hrs
CT A/P 06/20: Stable presumed fluid collections in the pelvis. Limited evaluation without IV contrast. Nonvisualization of the appendix. Again these findings may be due to acute appendicitis with periappendiceal abscess formation or pelvic
inflammatory disease. Necrotic masses due to malignancy cannot be excluded. If imaged again, a CT examination with oral and IV contrast is recommended.
Gen: nad well appearing
[2025-06-21] MEDS: NOVOLOG FLEXPEN-HIGH RESISTANCE 7 UNITS SC (12:31)
--- NOTE | 2025-06-21 12:44 | W.PN.ID1 ---
Date of Service
Date of Service: June 21, 2025
Today's Communication
Perc drain abscess.
Assessment / Plan
# Perforated appendicitis
# Suspect pelvic abscesses
# Leukocytosis
# Uncontrolled DM A1c 14
# Anaphylaxis to PCN, cephalosporin
- blood cx's neg to date
- Genital GC/Chlamydia negative.
- For perc drain pelvic abscesses - sent cx's.
- continue meropenem 500mg IV q6 (d2)
- Trend wbc
# PmHx
Diabetes mellitus
Asthma
Hemorrhagic CVA
CAD status post CABG
Mitral valve replacement 2018 with redo bio-MVR 02/2025
Endometriosis, history of laparoscopic surgery
x 2
Tubal ligation
Chief Complaint
-: Other (pelvic abscess)
Subjective / Review of Systems
Abd pain same
Vital Signs / Physical Exam
Vital Signs
Vital Signs
Temp Pulse Resp BP Pulse Ox
98.5 F 85 16 127/74 97
06/21/25 07:00 06/21/25 07:55 06/21/25 07:00 06/21/25 07:55 06/21/25 07:00
Physical Exam
Constitutional: No Acute Distress
Cardiovascular: Regular Rate and S1/S2
Pulmonary: Clear
Gastrointestinal: Soft, Tender (RLQ> LLQ), Non Distended and Normal Bowel Sounds
Extremities: Negative Edema
Neurological: AO x 3
Objective Data
Lab Data
Lab Results
06/21/25 07:52
06/21/25 07:52
Estimated Creat Clear 100 ml/min 06/21/25 07:52
Lactic Acid 1.3 mmol/L (0.7-2.0) 06/19/25 11:24
Total Bilirubin 0.4 mg/dl (0.2-1.3) 06/20/25 08:01
AST 21 U/L (14-36) 06/20/25 08:01
ALT 16 U/L (0-35) 06/20/25 08:01
Alkaline Phosphatase 147 U/L (38-126) H 06/20/25 08:01
Most recent labs reviewed.
Micro Results:
06/20/25 13:06 Genital Culture - Preliminary
Vagina
06/19/25 23:53 MRSA Screen - Final
Nose No Methicillin Resistant Staphylococcus aureus isolated.
06/19/25 21:44 Blood Culture - Preliminary
Blood/Venous No Growth in 24 hours- Final report to follow
06/19/25 21:52 Blood Culture - Preliminary
Blood/Venous No Growth in 24 hours- Final report to follow
06/20/25 13:07 Chlamydia trachomatis (PCR) - Final
Endo-cervical Neisseria gonorrhoeae (PCR) - Final
06/20/25 CT a/p with oral contrast only: Stable presumed fluid collections in the pelvis. Limited evaluation without IV contrast. Nonvisualization of the appendix. Again these findings may be due to acute appendicitis with periappendiceal abscess
formation or pelvic inflammatory disease. Necrotic masses due to malignancy cannot be excluded. If imaged again, a CT examination with oral and IV contrast is recommended.
06/19/25 CT a/p with IV contrast: Limited by lack of enteric contrast material with unopacified small and large bowel. Bilateral pelvic low-attenuation/complex fluid structures, as described. Possible considerations include abscess formation, which
may be associated with pelvic inflammatory disease in the proper clinical setting. On the right, appendicitis with periappendiceal abscess cannot be excluded. Alternatively, the appearance may be related to bilateral ovarian cysts and/or cystic
ovarian neoplasms.
06/19/25 Pelvic/transvaginal ultrasound: The ovaries are not definitively visualized. There are complex lesions of the bilateral adnexa measuring 3.0 x 3.3 x 3.1 cm on the right and 5.4 x 3.7 x 7.6 cm on the left. These appear to demonstrate central
free fluid and peripheral vascularity which are suspicious for abscesses.
[2025-06-21 15:30] VITALS: BP 111/67
[2025-06-21 16:44] LABS: Glucose - Point of Care 385 mg/dl (70-99)
[2025-06-21] MEDS: COZAAR 25 MG PO (16:59)
[2025-06-21] MEDS: NOVOLOG FLEXPEN-HIGH RESISTANCE 12 UNITS SC (17:01)
[2025-06-21 22:04] LABS: Glucose - Point of Care 341 mg/dl (70-99)
[2025-06-21 23:39] LABS: Glucose - Point of Care 378 mg/dl (70-99)
[2025-06-21 23:51] VITALS: BP 129/76
[2025-06-21] MEDS: NOVOLOG FLEXPEN-HIGH RESISTANCE SC (23:55)
[2025-06-22] VITALS (10 sets, daily range): BP systolic 73–154; BP diastolic 57–86; BMI 30.7
[2025-06-22] MEDS: NOVOLOG FLEXPEN-HIGH RESISTANCE 2 UNITS SC ×2 (00:10→15:16)
[2025-06-22 06:14] LABS: Glucose - Point of Care 260 mg/dl (70-99)
[2025-06-22] MEDS: STERILE WATER FOR INJECTION 10 ML IV ×4 (06:32→23:57)
[2025-06-22] MEDS: MERREM 500 MG IV ×4 (06:32→23:56)
[2025-06-22] MEDS: ZOFRAN 4 MG IV ×2 (06:36→14:39)
[2025-06-22 06:54] LABS: Hematocrit 33.3 % (37.0-47.0); Hemoglobin 10.8 g/dL (12.0-16.0); Mean Corp Hgb Conc. 32.4 g/dL (33.0-37.0); Mean Corpuscular Volume 82.2 fL (81.0-99.0); Nucleated Red Blood Cells % 0 %; Platelet Count 370 10^3/uL (130-400); Red Cell Dist. Width 15.9 % (11.5-14.5)
--- NOTE | 2025-06-22 07:22 | W.PN.HOSP.TC ---
Today's Communication/Plan
-
See plan
Assessment / Plan
Assessment / Plan
Physical Exam
Gen: NAD, AAOx3.
Eyes: EOMI, PERRLA, no scleral icterus.
Neck: supple.
CV: Remains RRR, +S1/S2
Resp: Remains CTAB, no rales, wheezes, or rhonchi.
Abd: Remains +BS, soft, NT, ND
Skin: Warm. Dry.
Neuro: CN 2-12 intact, non-focal.
Psych: Normal mood and affect.
Assessment/Plan
#Presentation with abdominal pain
#Bilateral adnexal collections possibly abscess
-CT abdomen pelvis with IV only�showed bilateral pelvic low-attenuation/complex fluid structures which include abscess formation may be associated pelvic inflammatory disease versus bilateral ovarian cysts or ovarian neoplasms,, appendicitis with
periappendiceal abscess cannot be excluded
-Pelvic ultrasound showed complex lesions of the bilateral adnexa which appear to demonstrate central free fluid and peripheral vascularity suggestive abscesses
-CA125 pending, considering a possible ovarian tumor
-Gynecology saw in c/s and discussed with IR. B/L adnexal collections likely abscesses related to h/o appendicitis.
-genital cultures with Few Group B Streptococcus agalactiae, Few Presumptive Barbara albicans and Many Usual Cervical/vaginal ada.
-chlamydia, gonorrhea negative
-ID input appreciated, transition to Meropenem 500 mg IV Q6 (D3)
-Blood cultures remain negative
-Pain medication with Dilaudid as needed, Zofran as needed
-For right abscess drainage by IR today 06/22/25 -- aspiration of a right lower quadrant/right pelvic fluid collection, yielding 3 mL of clear fluid -- due to the nonpurulent nature of the fluid, drainage catheter was not placed. Left
sided fluid collection was not well seen, and difficult to distinguish from bowel and bladder, no attempt made on left.
#T2DM with severe hyperglycemia
#History of DKA
-A1c pending
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
-Add premeal Insulin 10 units
-Coverage with SSI
-Patient to be kept n.p.o. at midnight today
-Diabetes nurse practitioner consulted as per prior hospitalist recommendation
#History of x 2
#History of tubal ligation
#History of endometriosis with prior laparoscopic surgery
#CAD status post CABG
-Denies chest pain
-Continue metoprolol
#CHF, unknown type
-Continue ARB/BB
#Essential hypertension
-Continue DEBURRING MACHINE OPERATOR metoprolol
-On losartan and valsartan, stop valsartan
#Asthma
-Not in acute exacerbation
-Continue albuterol
#Mitral valve replacement and redo MVR
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
#Hyperlipidemia
#Obesity due to excess calories
CODE STATUS: full code
DVT Prophylaxis: Heparin subq
Anticipated Discharge: > 48 hours
Subjective/Interval History
-
Date of Service: June 22, 2025
Patient was seen and examined. She reported nausea and some abdominal discomfort.
Objective Data
-
Labs:
Laboratory Results
06/22/25
06:07
WBC 9.3
Hgb 10.8 L
Hct 33.3 L
Plt Count 370
Sodium Pending
Potassium Pending
Chloride Pending
Carbon Dioxide Pending
BUN Pending
Creatinine Pending
Glucose Pending
Calcium Pending
Vital Signs:
Vital Signs
Temp Pulse Resp BP Pulse Ox
98.2 F 80 20 129/76 98
06/21/25 23:51 06/21/25 23:51 06/21/25 23:51 06/21/25 23:51 06/21/25 23:51
I&O
0806/22/25 06/23/25
06:59 06:59 06:59
Intake Total 420 / 420 480 / 480
Balance 420 / 420 480 / 480
[2025-06-22 07:26] LABS: Blood Urea Nitrogen 10 mg/dl (7-17); Calcium 9.1 mg/dl (8.4-10.2); Carbon Dioxide 29 mmol/L (22-30); Chloride 103 mmol/L (98-107); Estimated Creatinine Clearance 101 ml/min; Glucose 273 mg/dl (70-99); Magnesium 2.0 mg/dl (1.6-2.3); Potassium 4.8 mmol/L (3.5-5.1); Sodium 137 mmol/L (135-145); eGFR > 60.00
[2025-06-22] MEDS: NOVOLOG FLEXPEN-HIGH RESISTANCE SC ×2 (07:27→14:39)
--- NOTE | 2025-06-22 07:42 | PN.DE.MGMTRT ---
Addendum entered and electronically signed by Alena Ruiz NP 06/22/25 14:43:
2:45pm Attempted to meet with patient after OR. She states she is too nauseated she cannot speak to me; she was ordering lunch at the time. Will attempt again tomorrow to see patient.
Original Note:
Insulin Management
- -
06/22/2025 Diabetes Management Consult
Patient admitted 06/19 with abdominal pain - s/p ct of abdomen - possible bilateral pelvic abscesses, possible perforated appendix. PMH CAD s/p CABG, diabetes, chg, audie valve repair, csection x 2, asthma, hemorrhagic CVA in 2023. Prior to
admission was taking tresiba 18 units BID and novolog 18 units AC via ss. A1C on admission 14%. Cr .6, eGFR > 60 today.
Patient for OR today, currently NPO.
Yesterday patient received 24 units lantus BID with high corrective insulin. Glucose range yesterday 295 to 385.
Fasting glucose today 260. Will increase BID lantus to 30 units. Will start AC novolog 10 units after OR when diet resumed.
Discussed with nurse.
Will follow.
Diabetes History
- -
Pre-Admission Diabetes Regimen
06/21/25 06/22/25
07:52 06:07
Creatinine 0.6 0.6
Lab Results
Hemoglobin A1c 14.0 % (4.0-5.6) H 06/20/25 08:01
Insulin Pump Settings
IP Diabetes Regimen
06/21/25 06/21/25 06/21/25
07:52 11:22 16:41
Glucose 225 H
POC Glucose 295 H 385 H
06/21/25 06/21/25 06/22/25
22:03 23:38 06:07
Glucose 273 H
POC Glucose 341 H 378 H
06/22/25
06:13
Glucose
POC Glucose 260 H
Meal type: Dinner
Meal type: Lunch
Meal type: Breakfast
Amount consumed: 100%
Amount consumed: 100%
Amount consumed: 100%
Patient Education
[2025-06-22] MEDS: LANTUS 0.3 UNITS SC ×2 (08:57→20:29)
[2025-06-22] MEDS: TOPROL XL 25 MG PO (08:57)
[2025-06-22] MEDS: TYLENOL 650 MG PO ×4 (08:57→22:47)
[2025-06-22] MEDS: HEPARIN SC ×2 (09:07→20:18)
[2025-06-22] MEDS: NOVOLOG FLEXPEN SC (12:00)
--- NOTE | 2025-06-22 13:05 | W.PN.ID1 ---
Date of Service
Date of Service: June 22, 2025
Today's Communication
Continue meropenem.
Perc drain abscess.
Assessment / Plan
# Perforated appendicitis
# Suspect pelvic abscesses
# Leukocytosis - resolved
# Uncontrolled DM A1c 14
# Anaphylaxis to PCN, cephalosporin
- blood cx's neg to date
- Genital GC/Chlamydia negative.
- Genital cx GBS colonization
- For perc drain pelvic abscesses - send cx's.
- continue meropenem 500mg IV q6 (d3)
# PmHx
Diabetes mellitus
Asthma
Hemorrhagic CVA
CAD status post CABG
Mitral valve replacement 2018 with redo bio-MVR 02/2025
Endometriosis, history of laparoscopic surgery
x 2
Tubal ligation
Chief Complaint
-: Other (pelvic abscess)
Subjective / Review of Systems
+nausea. abd pain stable.
Vital Signs / Physical Exam
Vital Signs
Vital Signs
Temp Pulse Resp BP Pulse Ox
99.2 F 78 18 126/67 97
06/22/25 11:50 06/22/25 11:50 06/22/25 11:50 06/22/25 11:50 06/22/25 11:50
Physical Exam
Constitutional: No Acute Distress
Cardiovascular: Regular Rate and S1/S2
Pulmonary: Clear
Gastrointestinal: Soft and Tender (RLQ> mid> LLQ)
Genito-Urinary: Negative CVA Tenderness
Neurological: AO x 3
Objective Data
Lab Data
Lab Results
06/22/25 06:07
06/22/25 06:07
Estimated Creat Clear 101 ml/min 06/22/25 06:07
Lactic Acid 1.3 mmol/L (0.7-2.0) 06/19/25 11:24
Total Bilirubin 0.4 mg/dl (0.2-1.3) 06/20/25 08:01
AST 21 U/L (14-36) 06/20/25 08:01
ALT 16 U/L (0-35) 06/20/25 08:01
Alkaline Phosphatase 147 U/L (38-126) H 06/20/25 08:01
Most recent labs reviewed.
Micro Results:
06/20/25 13:06 Genital Culture - Preliminary
Vagina Streptococcus agalactiae
Barbara albicans
06/19/25 21:44 Blood Culture - Preliminary
Blood/Venous No Growth in 48 hours- Final report to follow
06/19/25 21:52 Blood Culture - Preliminary
Blood/Venous No Growth in 48 hours- Final report to follow
06/19/25 23:53 MRSA Screen - Final
Nose No Methicillin Resistant Staphylococcus aureus isolated.
06/20/25 13:07 Chlamydia trachomatis (PCR) - Final
Endo-cervical Neisseria gonorrhoeae (PCR) - Final
06/20/25 CT a/p with oral contrast only: Stable presumed fluid collections in the pelvis. Limited evaluation without IV contrast. Nonvisualization of the appendix. Again these findings may be due to acute appendicitis with periappendiceal abscess
formation or pelvic inflammatory disease. Necrotic masses due to malignancy cannot be excluded. If imaged again, a CT examination with oral and IV contrast is recommended.
06/19/25 CT a/p with IV contrast: Limited by lack of enteric contrast material with unopacified small and large bowel. Bilateral pelvic low-attenuation/complex fluid structures, as described. Possible considerations include abscess formation, which
may be associated with pelvic inflammatory disease in the proper clinical setting. On the right, appendicitis with periappendiceal abscess cannot be excluded. Alternatively, the appearance may be related to bilateral ovarian cysts and/or cystic
ovarian neoplasms.
06/19/25 Pelvic/transvaginal ultrasound: The ovaries are not definitively visualized. There are complex lesions of the bilateral adnexa measuring 3.0 x 3.3 x 3.1 cm on the right and 5.4 x 3.7 x 7.6 cm on the left. These appear to demonstrate central
free fluid and peripheral vascularity which are suspicious for abscesses.
--- NOTE | 2025-06-22 13:38 | W.PN.UPDATE ---
Update Note
Progress Note Update
CT guidance was used to access RLQ fluid collection. Approximately 3 cc of clear fluid was aspirated. May be ovarian cyst. Due to nonpurulent nature of fluid, no drain was placed. Left sided fluid collection was not well seen, and difficult to
distinguish from bowel and bladder, no attempt made on left.
Fluid sent for laboratory analysis.
[2025-06-22 14:51] LABS: Glucose - Point of Care 169 mg/dl (70-99)
[2025-06-22] MEDS: NOVOLOG FLEXPEN 10 UNITS SC (15:15)
--- NOTE | 2025-06-22 16:07 | CM ---
Spoke with patient she said she will go home at ok with [facility] .
Pt is current with [facility].
Continues IV antibiotics.
PLAN Home with [facility] fax [phone]
[2025-06-22 16:45] LABS: Glucose - Point of Care 279 mg/dl (70-99)
--- NOTE | 2025-06-22 16:48 | W.PN.OBG.DWH ---
Today's Communication / Plan
-
s/p drainage R sided cyst
Assessment/Plan
-
imp
abdominal pain. pelvic abscesses, on abx
s/p drainage of R cyst
ca 125 pending, gc/chlam neg
get reports from [facility]
leucocytosis resolving
Subjective Data
-
no complaints, denies pain
reports saw Dr. Gibbs 1.5 y ago at [facility]. Unsure of what kind of procedure done. if she she had pelvic us at that time
s/p IR drainage of R pelvic lesion: 3 cc clear fluid
Objective Data
-
Laboratory Results
06/22/25 06:07
06/22/25 06:07
Vital Signs
Temp Pulse Resp BP Pulse Ox
97.6 F 74 18 154/86 99
06/22/25 15:30 06/22/25 15:30 06/22/25 15:30 06/22/25 15:30 06/22/25 15:30
lungs cl
cor rrr
abd +bs soft nt, bandage in place RLQ
ext nt
[2025-06-22] MEDS: COZAAR 25 MG PO (17:46)
--- NOTE | 2025-06-22 18:04 | PTCARENOTE ---
Patient ate a late lunch after arriving from IR procedure. Patient had received her 1630 insulin dose. Patient then ordered her dinner. Patient's blood sugar 279. This RN reached out to provider with concern about patient's dosing for additional
insulin due to peak of short acting insulin administered at 1516. Plan is to have logging operations inspector RN recheck blood sugar per orders and cover with appropriate insulin coverage pending AccuCheck result.
[2025-06-22 18:30] LABS: CA 125 17.7 U/mL (0-35)
[2025-06-22 20:22] LABS: Glucose - Point of Care 321 mg/dl (70-99)
[2025-06-23 03:50] VITALS: BMI 30.8
[2025-06-23] MEDS: STERILE WATER FOR INJECTION 10 ML IV ×4 (05:46→23:48)
[2025-06-23] MEDS: MERREM 500 MG IV ×4 (05:46→23:48)
[2025-06-23] MEDS: ZOFRAN 4 MG IV (05:56)
[2025-06-23 07:00] VITALS: BP 145/87
[2025-06-23 07:39] LABS: Glucose - Point of Care 206 mg/dl (70-99)
[2025-06-23] MEDS: TOPROL XL 25 MG PO (07:57)
[2025-06-23] MEDS: TYLENOL 650 MG PO ×4 (07:58→21:13)
[2025-06-23] MEDS: HEPARIN SC ×3 (07:58→21:12)
[2025-06-23] MEDS: NOVOLOG FLEXPEN-HIGH RESISTANCE 206 UNITS SC (07:59)
[2025-06-23] MEDS: NOVOLOG FLEXPEN 10 UNITS SC (07:59)
[2025-06-23] MEDS: LANTUS 0.3 UNITS SC ×2 (08:00→21:12)
[2025-06-23 08:19] LABS: Hematocrit 33.4 % (37.0-47.0); Hemoglobin 11.0 g/dL (12.0-16.0); Mean Corp Hgb Conc. 32.9 g/dL (33.0-37.0); Mean Corpuscular Volume 82.9 fL (81.0-99.0); Nucleated Red Blood Cells % 0 %; Platelet Count 345 10^3/uL (130-400); Red Cell Dist. Width 15.9 % (11.5-14.5)
[2025-06-23 09:05] LABS: Blood Urea Nitrogen 11 mg/dl (7-17); Calcium 9.3 mg/dl (8.4-10.2); Carbon Dioxide 31 mmol/L (22-30); Chloride 103 mmol/L (98-107); Estimated Creatinine Clearance 101 ml/min; Glucose 216 mg/dl (70-99); Potassium 5.4 mmol/L (3.5-5.1); Sodium 137 mmol/L (135-145); eGFR > 60.00
--- NOTE | 2025-06-23 11:35 | PN.DE.MGMTRT ---
Insulin Management
- -
06/23/2025 Diabetes Management Consult Follow up
Patient admitted 06/19 with abdominal pain - s/p ct of abdomen - possible bilateral pelvic abscesses, possible perforated appendix. PMH CAD s/p CABG, diabetes, chg, mitral valve repair, csection x 2, asthma, lupus, hemorrhagic CVA in 2023. Prior
to admission was taking tresiba 18 units BID and novolog 18 units AC via ss. A1C on admission 14%. Cr .5, eGFR > 60 today.
Patient is awake, alert and oriented, feeling better today able to discuss diabetes care. States she sees Dr. Brandy spence in [facility] for ongoing care. She uses the [employer] G7 CGM. States A1C is about 9% usually. States she has had diabetes
since 08/2003.
Patient ate meals close together so did not receive insulin for dinner. She did receive lantus 30 units @ hs. Fasting glucose today 206.
Will continue lantus 30 units BID with novolog 12 units AC , first increased dose with lunch. Will check 3AM glucose.
Discussed with nurse.
Will follow.
Diabetes History
- -
Type of Diabetes: 2 requiring insulin
Pre-Admission Diabetes Regimen
06/23/25
07:43
Creatinine 0.5 L
Lab Results
Hemoglobin A1c 14.0 % (4.0-5.6) H 06/20/25 08:01
Insulin Pump Settings
IP Diabetes Regimen
06/22/25 06/22/25 06/22/25
14:50 16:44 20:21
Glucose
POC Glucose 169 H 279 H 321 H
06/23/25 06/23/25
07:38 07:43
Glucose 216 H
POC Glucose 206 H
Meal type: Breakfast
Meal type: Dinner
Amount consumed: 100%
Amount consumed: 100%
Patient Education
--- NOTE | 2025-06-23 11:52 | W.PN.OBG.DWH ---
Today's Communication / Plan
-
Continue with antibiotics
Diflucan ordered for yeast positive vaginal culture
Recommend proceeding with PRINTING EQUIPMENT MECHANIC APPRENTICE/Onc consult as previously recommended
Unless PRINTING EQUIPMENT MECHANIC APPRENTICE/Onc prefers MRI, would recommend repeat CT with IV and oral contrast in AM to gauge improvement in masses
20 minutes spent reviewing records, evaluating patinet and forming recommendations.
Assessment/Plan
-
Lower abdominal/pelvic masses, likely abscess- Would continue with antibiotics, agree with prior recommendation to have PRINTING EQUIPMENT MECHANIC APPRENTICE/Onc consulted as pelvic abscesses in post menopausal women often associated with malignancy, unless PRINTING EQUIPMENT MECHANIC APPRENTICE/Onc consult
recommends MRI, have spoken to Dr Edwards about best timing for re-imaging, he recommends repeat CT scan with IV and oral contrast tomorrow. Am concerned that if this is the result of medically managed appendicitis, relying solely on symptom
improvment may make it difficult to be sure about resolution
Subjective Data
-
Patient feels 'not getting anywhere', was nauseated overnight, this AM, she feels due to her blood sugars being too low. Patient reports she did not have 'belly button' surgery but rather she had a problem in her uterus, and procedure she describes
sounds like D&C. Patient is a poor historian, records from outside institution still pending. Reports abdominal pain about the same, no bleeding or vaginal discharge.
Advised patient that prelim report on aspirated fluid from yesterday is negative. Also advised patient of normal CA-125.
Objective Data
-
Laboratory Results
06/23/25 07:43
06/23/25 07:43
Vital Signs
Temp Pulse Resp BP Pulse Ox
97.7 F 84 18 154/89 98
06/23/25 07:00 06/23/25 07:57 06/23/25 07:00 06/23/25 07:57 06/23/25 07:00
Abdomen-soft, nondistended, nontender, good bowel sounds, no rebound or guarding.
Extremities-no calf pain
[2025-06-23 11:54] LABS: Glucose - Point of Care 172 mg/dl (70-99)
[2025-06-23] MEDS: NOVOLOG FLEXPEN-HIGH RESISTANCE 2 UNITS SC ×2 (12:06→17:11)
--- NOTE | 2025-06-23 12:07 | W.PN.UPDATE ---
Update Note
Progress Note Update
Monistat ordered as fluconazole with potential cardiac interactions
[2025-06-23] MEDS: NOVOLOG FLEXPEN SC (12:15)
--- NOTE | 2025-06-23 12:29 | W.PN.HOSP.TC ---
Today's Communication/Plan
-
See plan -- discussed case extensively with linseed oil order filler/onc Dr. Carmen. MRI pelvis with and without contrast ordered
Assessment / Plan
Assessment / Plan
Physical Exam
Gen: NAD, AAOx3.
Eyes: EOMI, PERRLA, no scleral icterus.
Neck: supple.
CV: Remains RRR, +S1/S2
Resp: Remains CTAB, no rales, wheezes, or rhonchi.
Abd: Remains +BS, soft, NT, ND
Skin: Warm. Dry.
Neuro: CN 2-12 intact, non-focal.
Psych: Normal mood and affect.
Assessment/Plan
#Presentation with abdominal pain
#Bilateral adnexal collections possibly abscess
-CT abdomen pelvis with IV only�showed bilateral pelvic low-attenuation/complex fluid structures which include abscess formation may be associated pelvic inflammatory disease versus bilateral ovarian cysts or ovarian neoplasms,, appendicitis with
periappendiceal abscess cannot be excluded
-Pelvic ultrasound showed complex lesions of the bilateral adnexa which appear to demonstrate central free fluid and peripheral vascularity suggestive abscesses
-CA125 pending, considering a possible ovarian tumor
-Gynecology saw in c/s and discussed with IR. B/L adnexal collections likely abscesses related to h/o appendicitis.
-I discussed on 06/23/25 patient's case with OBGYN physician Dr. Coy Fofana, who recommended: 1) Benefits Analyst/Onc consult; 2) Repeat Imaging tomorrow to confirm improvement (MRI ordered)
-I consulted Benefits Analyst/Onc (Dr. Carmen) on 06/23/25, and I spoke with Dr. Carmen -- and he recommended: 1) MRI pelvis with and without contrast (ordered); 2) Discussing/re-consulting case with general surgery so
that they can plan a potential surgery for the abdominal abscesses/masses and to further evaluate pelvic structures; 3) Bringing obgyn physician Dr. Egan into the case; 4) Cardiology pre-op risk
stratification given patient's history of heart valve surgery and CABG; 5) Bringing the Diabetes Mellitus/Glucose values under better control
-Since it is late in the day today, will do Steps 2) through 4) above, tomorrow
-Dr. Carmen's suspicion for malignancy is very low
-genital cultures with Few Group B Streptococcus agalactiae, Few Presumptive Barbara albicans and Many Usual Cervical/vaginal ada.
-chlamydia, gonorrhea negative
-ID input appreciated, transition to Meropenem 500 mg IV Q6 (D4)
-Monistat
-Blood cultures remain negative
-Pain medication with Dilaudid as needed, Zofran as needed
-Right abscess drainage by IR today 06/22/25 -- aspiration of a right lower quadrant/right pelvic fluid collection, yielding 3 mL of clear fluid -- due to the nonpurulent nature of the fluid, drainage catheter was not placed. Left
sided fluid collection was not well seen, and difficult to distinguish from bowel and bladder, no attempt made on left.
#T2DM with severe hyperglycemia
#History of DKA
-A1c 14.0%
-Continue WAFER FAB OPERATOR Lantus, dosage increased to 30 units twice daily
-Premeal Insulin increased to 12 units
-Coverage with SSI
-Diabetes nurse practitioner consulted as per prior hospitalist recommendation
#History of x 2
#History of tubal ligation
#History of endometriosis with prior laparoscopic surgery
#CAD status post CABG
-Denies chest pain
-Continue metoprolol
#CHF, unknown type
-Continue ARB/BB
#Essential hypertension
-Continue WAFER FAB OPERATOR metoprolol
-Was on losartan and valsartan, so valsartan was stopped
#Asthma
-Not in acute exacerbation
-Continue albuterol
#Mitral valve replacement and redo MVR
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
#Hyperlipidemia
#Obesity due to excess calories
CODE STATUS: full code
DVT Prophylaxis: Heparin subq
Anticipated Discharge: > 48 hours
Subjective/Interval History
-
Date of Service: June 23, 2025
Patient was seen and examined. She denied any new symptoms or complaints.
Objective Data
-
Labs:
Laboratory Results
06/23/25
07:43
WBC 11.2 H
Hgb 11.0 L
Hct 33.4 L
Plt Count 345
Sodium 137
Potassium 5.4 H
Chloride 103
Carbon Dioxide 31 H
BUN 11
Creatinine 0.5 L
Glucose 216 H
Calcium 9.3
Vital Signs:
Vital Signs
Temp Pulse Resp BP Pulse Ox
97.7 F 84 18 154/89 98
06/23/25 07:00 06/23/25 07:57 06/23/25 07:00 06/23/25 07:57 06/23/25 07:00
I&O
06/22/25 06/23/25 06/24/25
06:59 06:59 06:59
Intake Total 480 / 480 360 / 360
Balance 480 / 480 360 / 360
--- NOTE | 2025-06-23 13:10 | W.PN.ID1 ---
Date of Service
Date of Service: June 23, 2025
Today's Communication
Continue meropenem for now pending imaging studies.
Assessment / Plan
# Bilateral adnexal complex collections
# Leukocytosis - waxes and wanes
# Uncontrolled DM A1c 14
# Anaphylaxis to PCN, cephalosporin
- blood cx's neg to date
- Genital GC/Chlamydia negative.
- Genital cx GBS colonization
- 06/22 IR aspiration of RLQ/pelvic fluid - 3cc clear fluid. CX neg to date.
- Since pelvic fluid collections do not appear to be abscesses
- COUPLING MACHINE OPERATOR consulted COUPLING MACHINE OPERATOR/Onc.
For repeat CT with IV and po contrast vs MRI.
-Anticipate dc further meropenem 500mg IV q6 (d4).
# PmHx
Diabetes mellitus
Asthma
Hemorrhagic CVA
CAD status post CABG
Mitral valve replacement 2018 with redo bio-MVR 02/2025
Endometriosis, history of laparoscopic surgery
x 2
Tubal ligation
Chief Complaint
-: Other (pelvic abscess)
Subjective / Review of Systems
No new complaints. Wants to go home soon.
Vital Signs / Physical Exam
Vital Signs
Vital Signs
Temp Pulse Resp BP Pulse Ox
97.7 F 84 18 154/89 98
06/23/25 07:00 06/23/25 07:57 06/23/25 07:00 06/23/25 07:57 06/23/25 07:00
Physical Exam
Constitutional: No Acute Distress
Cardiovascular: Regular Rate and S1/S2
Pulmonary: Clear
Gastrointestinal: Soft and Tender (RLQ> mid> LLQ)
Genito-Urinary: Negative CVA Tenderness
Neurological: AO x 3
Objective Data
Lab Data
Lab Results
06/23/25 07:43
06/23/25 07:43
Estimated Creat Clear 101 ml/min 06/23/25 07:43
Lactic Acid 1.3 mmol/L (0.7-2.0) 06/19/25 11:24
Total Bilirubin 0.4 mg/dl (0.2-1.3) 06/20/25 08:01
AST 21 U/L (14-36) 06/20/25 08:01
ALT 16 U/L (0-35) 06/20/25 08:01
Alkaline Phosphatase 147 U/L (38-126) H 06/20/25 08:01
Most recent labs reviewed.
Micro Results:
06/20/25 13:06 Genital Culture - Final
Vagina Streptococcus agalactiae
Barbara albicans
06/22/25 13:30 Anaerobic Culture - Preliminary
Abscess Culture pending. Anaerobic cultures are examined after 3
days incubation. Additional information to follow.
06/22/25 13:30 Wound Culture - Preliminary
Abscess No growth
Gram Stain - Preliminary
06/19/25 21:44 Blood Culture - Preliminary
Blood/Venous No Growth in 72 hours- Final report to follow
06/19/25 21:52 Blood Culture - Preliminary
Blood/Venous No Growth in 72 hours- Final report to follow
06/19/25 23:53 MRSA Screen - Final
Nose No Methicillin Resistant Staphylococcus aureus isolated.
06/20/25 13:07 Chlamydia trachomatis (PCR) - Final
Endo-cervical Neisseria gonorrhoeae (PCR) - Final
06/20/25 CT a/p with oral contrast only: Stable presumed fluid collections in the pelvis. Limited evaluation without IV contrast. Nonvisualization of the appendix. Again these findings may be due to acute appendicitis with periappendiceal abscess
formation or pelvic inflammatory disease. Necrotic masses due to malignancy cannot be excluded. If imaged again, a CT examination with oral and IV contrast is recommended.
06/19/25 CT a/p with IV contrast: Limited by lack of enteric contrast material with unopacified small and large bowel. Bilateral pelvic low-attenuation/complex fluid structures, as described. Possible considerations include abscess formation, which
may be associated with pelvic inflammatory disease in the proper clinical setting. On the right, appendicitis with periappendiceal abscess cannot be excluded. Alternatively, the appearance may be related to bilateral ovarian cysts and/or cystic
ovarian neoplasms.
06/19/25 Pelvic/transvaginal ultrasound: The ovaries are not definitively visualized. There are complex lesions of the bilateral adnexa measuring 3.0 x 3.3 x 3.1 cm on the right and 5.4 x 3.7 x 7.6 cm on the left. These appear to demonstrate central
free fluid and peripheral vascularity which are suspicious for abscesses.
[2025-06-23 15:00] VITALS: BP 153/90
--- NOTE | 2025-06-23 16:09 | W.CON.GYNONC ---
Consultation
-
Date/Time Consultation Requested: June 23, 2025 1400
Date/Time Consultation Performed: June 23, 2025 1600
Requesting Provider: Carlos Alberto Byrnes
Performing Provider: Uvaldo Carmen
Reason for Consultation: Pelvic mass
Chief Complaint
-
Lower abdominal pain
History of Present Illness
55yo white female who was admitted June 19, 2025 for abdominal pain, n/v for the past month. She had been admitted at [facility] a month ago for DKA and suspected ruptured appendicitis. She completed a 2 week course of antibiotics.
She had a follow-up visit with in surgical oncology at [facility] and was told that possible surgery is needed but would need a repeat CT scan in 3 months before plan would be confirmed. Patient had a nurse because of
cardiac surgery at [facility] who detected she had intermittent fevers at home up to 102 but mostly 100.5, she called several hospitals within the [place] system and directed the patient to come in to on Sunday. she felt that she
was getting progressively worse. She denies abnormal discharge from the vagina. Has been taking tylenol to help with the pain. +loose BM.
Since being hospitalized the patient has had CT of abdomen and pelvis initially with IV contrast and subsequently with oral contrast only as well as a pelvic ultrasound. Bilateral pelvic low-attenuation/complex fluid structures, as described.
Possible considerations include abscess formation, which may be associated with pelvic inflammatory disease in the proper clinical setting. On the right, appendicitis with periappendiceal abscess cannot be excluded. Review of the ultrasound shows
the ovaries are not definitively visualized. There are complex lesions of the bilateral adnexa measuring 3.0 x 3.3 x 3.1 cm on the right and 5.4 x 3.7 x 7.6 cm on the left. These appear to demonstrate central free fluid and peripheral vascularity
which are suspicious for abscesses.
PMHx: CVA, CHF, CAD, HTN, Uncontrolled DM, appendicitis, asthma, HLD, Asthma, not in acute exac: cont albuterol
PSHx: mitral valve replacement February 2025 CABG, Laparoscopy for Endometriosis.
POBHx: C/S x2
PGYNHx: follows with Taylor Valdes at [facility] , saw Dr Willingham, denies any prior history of abnormal Pap smears, she was on Lupron and was amenorrheic for many years, stopped in 2018 and has not had any bleeding since 2019 , she denies any PMB. She
has not been sexually active for over a year because of 's back injury
FHx: Paternal aunt has ovary and breast cancer, father and mother both with lung cancer
All: PCN, Clarithromycin, Keflex, Ceclor
SHx: Neg x3 patient is ,
Meds: See Medication List
Medical History
Allergies
Allergies reflect when allergies were last updated in [employer].
cefaclor (From Ceclor) Allergy (Verified 06/20/25 16:36)
Hives and throat closing
cephalexin (From Keflex) Allergy (Verified 06/20/25 16:36)
Hives and throat closing
clarithromycin (From Biaxin) Allergy (Verified 06/20/25 16:36)
Itching
Penicillins Allergy (Verified 06/20/25 16:36)
Hives and throat closing (teenagera)
Physical Exam
Vital Signs / I&O
Vitals
Temp Pulse Resp BP Pulse Ox
97.7 F 84 18 154/89 98
06/23/25 07:00 06/23/25 07:57 06/23/25 07:00 06/23/25 07:57 06/23/25 07:00
I&O
06/21/25 06/22/25 06/23/25 06/24/25
06:59 06:59 06:59 06:59
Intake Total 420 / 420 480 / 480 360 / 360
Balance 420 / 420 480 / 480 360 / 360
Physical Exam
Constitutional: No Acute Distress
Lymph node survey shows no evidence of cervical axillary or inguinal lymphadenopathy
Cardiovascular: Regular Rate and S1/S2
Pulmonary: Clear
Gastrointestinal: Soft and Tender (RLQ> mid> LLQ)
Genito-Urinary: Negative CVA Tenderness
Neurological: AO x 3
Results
-
06/23/25 07:43
06/23/25 07:43
Impression / Plan
-
55-year-old with a very complex cardiac history as well as diabetes with uncontrolled blood sugars admitted for lower abdominal pain, bilateral adnexal masses as well as low-grade fevers. While in hospital she has not had any fever but she is on
antibiotics and is taking Tylenol. Aspiration of the right sided cystic structure in the pelvis revealed only 3 cc of clear fluid which was sent for diagnostic studies. None of the blood cultures show any evidence of infection, GC chlamydia probes
are negative, vaginal culture is significant for Barbara and strep. Patient does not appear to be toxic and no emergent intervention is necessary.
My suspicion for malignancy is very low
I suspect that the patient has bilateral hydrosalpinx dilated fallopian tubes related to prior history of endometriosis. I will proceed to request an MRI of the pelvis with and without contrast for better evaluation.
At some point in the near future the patient will probably need surgical intervention for diagnostic and eventually therapeutic purposes.
I recommend that we work on glycemic control to get her blood sugars below 250 consistently
I also recommend a formal cardiology evaluation to assess eligibility for going to the operating room should the need arises. Patient does report history of CHF.
I will discussed the case with my colleagues in general surgery and see whether we could coordinate a diagnostic laparoscopy in order to better evaluate pelvic structures, possibly consider bilateral salpingo-oophorectomy and appendectomy for
definitive management.
Mark. Alisha Carmen MD
Greenhouse Technician Oncology
[phone]
[2025-06-23 16:29] LABS: Glucose - Point of Care 184 mg/dl (70-99)
[2025-06-23] MEDS: NOVOLOG FLEXPEN 12 UNITS SC (17:11)
[2025-06-23] MEDS: COZAAR 25 MG PO (17:14)
[2025-06-23 21:08] LABS: Glucose - Point of Care 156 mg/dl (70-99)
[2025-06-23] MEDS: MONISTAT 7 VAGINAL CREAM 1 APPLIC VAG (21:13)
[2025-06-23 23:00] VITALS: BP 117/81
[2025-06-24 03:02] VITALS: BMI 30.9
[2025-06-24 03:21] LABS: Glucose - Point of Care 145 mg/dl (70-99)
[2025-06-24] MEDS: MERREM 500 MG IV ×4 (05:42→23:57)
[2025-06-24] MEDS: STERILE WATER FOR INJECTION 10 ML IV ×4 (05:42→23:57)
[2025-06-24 07:00] VITALS: BP 150/87
[2025-06-24] MEDS: HEPARIN SC ×2 (07:48→20:41)
[2025-06-24] MEDS: TYLENOL 650 MG PO ×4 (07:48→23:22)
[2025-06-24] MEDS: TOPROL XL 25 MG PO (07:49)
[2025-06-24] MEDS: NOVOLOG FLEXPEN 12 UNITS SC ×3 (07:52→16:22)
[2025-06-24] MEDS: NOVOLOG FLEXPEN-HIGH RESISTANCE 2 UNITS SC ×2 (07:53→12:33)
[2025-06-24] MEDS: LANTUS 0.3 UNITS SC ×2 (07:53→20:41)
[2025-06-24 07:59] LABS: Glucose - Point of Care 169 mg/dl (70-99)
[2025-06-24 08:38] LABS: Hematocrit 33.6 % (37.0-47.0); Hemoglobin 10.7 g/dL (12.0-16.0); Mean Corp Hgb Conc. 31.8 g/dL (33.0-37.0); Mean Corpuscular Volume 83.8 fL (81.0-99.0); Nucleated Red Blood Cells % 0 %; Platelet Count 341 10^3/uL (130-400); Red Cell Dist. Width 15.9 % (11.5-14.5)
[2025-06-24 09:01] LABS: Blood Urea Nitrogen 11 mg/dl (7-17); Calcium 9.3 mg/dl (8.4-10.2); Carbon Dioxide 30 mmol/L (22-30); Chloride 104 mmol/L (98-107); Estimated Creatinine Clearance 101 ml/min; Glucose 174 mg/dl (70-99); Potassium 4.9 mmol/L (3.5-5.1); Sodium 138 mmol/L (135-145); eGFR > 60.00
[2025-06-24 10:49] LABS: Glucose - Point of Care 174 mg/dl (70-99)
--- NOTE | 2025-06-24 10:56 | PTCARENOTE ---
Patient reported dizziness and thought it might be due to a low blood sugar-- her sugar read 174.
--- NOTE | 2025-06-24 11:25 | W.PN.UPDATE ---
Update Note
Progress Note Update
Pt seen and evaluated at bedside. On exam mild ttp to BLQ persists. Plan for GS assistance with possible planned Java Mobile Developer-Onc operation discussed. Sister present. She has a cardiac and pulm history and will benefit from preop risk stratification from
Cards and Pulm teams. Need to improve glycemic control as well. IR aspiration results pending. All ?s answered.
--- NOTE | 2025-06-24 12:02 | PN.DE.MGMTRT ---
Insulin Management
- -
06/24/2025 Diabetes Management Consult Follow up
Patient admitted 06/19 with abdominal pain - s/p ct of abdomen - possible bilateral pelvic abscesses, possible perforated appendix. PMH CAD s/p CABG, diabetes, chg, mitral valve repair, csection x 2, asthma, lupus, hemorrhagic CVA in 2023. Prior
to admission was taking tresiba 18 units BID and novolog 18 units AC via ss. A1C on admission 14%. Cr .5, eGFR > 60 today.
Patient is awake, alert and oriented, feeling better today able to discuss diabetes care. States she sees Dr. Brandy spence in [facility] for ongoing care. She uses the [employer] G7 CGM. States A1C is about 9% usually. States she has had diabetes
since 08/2003.
Glucose range yesterday 156 to 206, insulin increased, glucose @ HS improved to 156. 3AM glucose 145, fasting glucose today 169.
Will continue lantus 30 units BID with novolog 12 units AC. Discussed with patient to try to be consistent with amount of CHO at each meal targeting no less than 30 to no more than 45 grams per meal.
Discussed with nurse.
Will follow.
Diabetes History
- -
Type of Diabetes: 2 requiring insulin
Pre-Admission Diabetes Regimen
06/24/25
07:45
Creatinine 0.5 L
Lab Results
Hemoglobin A1c 14.0 % (4.0-5.6) H 06/20/25 08:01
Insulin Pump Settings
IP Diabetes Regimen
06/23/25 06/23/25 06/24/25
16:28 21:07 03:20
Glucose
POC Glucose 184 H 156 H 145 H
06/24/25 06/24/25 06/24/25
07:45 07:51 10:48
Glucose 174 H
POC Glucose 169 H 174 H
Meal type: Breakfast
Meal type: Lunch
Meal type: Lunch
Amount consumed: 100%
Amount consumed: 100%
Amount consumed: 100%
Patient Education
--- NOTE | 2025-06-24 12:50 | W.PN.HOSP.TC ---
Today's Communication/Plan
-
Pre-op clearance (by both pulm and cardio, as requested by surgery), surgery date TBD
Continue antibiotics
Pelvis MRI
See plan
Assessment / Plan
Assessment / Plan
Physical Exam
Gen: NAD, AAOx3.
Eyes: EOMI, PERRLA, no scleral icterus.
Neck: supple.
CV: Remains RRR, +S1/S2
Resp: Remains CTAB, no rales, wheezes, or rhonchi.
Abd: Remains +BS, soft, ND. Mild tenderness at the bilateral lower quadrants.
Skin: Warm. Dry.
Neuro: CN 2-12 intact, non-focal.
Psych: Normal mood and affect.
Assessment/Plan
#Presentation with abdominal pain
#Bilateral adnexal collections possibly abscess
-CT abdomen pelvis with IV only�showed bilateral pelvic low-attenuation/complex fluid structures which include abscess formation may be associated pelvic inflammatory disease versus bilateral ovarian cysts or ovarian neoplasms,, appendicitis with
periappendiceal abscess cannot be excluded
-Pelvic ultrasound showed complex lesions of the bilateral adnexa which appear to demonstrate central free fluid and peripheral vascularity suggestive abscesses
-CA125 pending, considering a possible ovarian tumor
-Gynecology saw in c/s and discussed with IR. B/L adnexal collections likely abscesses related to h/o appendicitis.
-I discussed on 06/23/25 patient's case with OBGYN physician Dr. Coy Fofana, who recommended: 1) Billing Coordinator/Onc consult; 2) Repeat Imaging tomorrow to confirm improvement (MRI ordered)
-I consulted Billing Coordinator/Onc (Dr. Carmen) on 06/23/25, and I spoke with Dr. Carmen -- and he recommended: 1) MRI pelvis with and without contrast (ordered); 2) Discussing/re-consulting case with general surgery so
that they can plan a potential surgery for the abdominal abscesses/masses and to further evaluate pelvic structures; 3) Bringing obgyn physician Dr. Egan into the case; 4) Cardiology pre-op risk
stratification given patient's history of heart valve surgery and CABG; 5) Bringing the Diabetes Mellitus/Glucose values under better control
-Dr. Carmen's suspicion for malignancy is very low
-Per Dr. Sosa's (surgeon's) request, I consulted both cardiology and pulmonary (patient needed IV med before surgery in the past for her asthma) for pre-op clearance
-genital cultures with Few Group B Streptococcus agalactiae, Few Presumptive Barbara albicans and Many Usual Cervical/vaginal ada.
-chlamydia, gonorrhea negative
-ID input appreciated, transition to Meropenem 500 mg IV Q6 (D5)
-Monistat
-Blood cultures remain negative
-Pain medication with Dilaudid as needed, Zofran as needed
-Right abscess drainage by IR today 06/22/25 -- aspiration of a right lower quadrant/right pelvic fluid collection, yielding 3 mL of clear fluid -- due to the nonpurulent nature of the fluid, drainage catheter was not placed. Left
sided fluid collection was not well seen, and difficult to distinguish from bowel and bladder, no attempt made on left.
#T2DM with severe hyperglycemia
#History of DKA
-A1c 14.0%
-Glucose range is currently in goal at 140 to 180
-Continue SHEET ROCK FINISHER Lantus, dosage increased to 30 units twice daily -- continue
-Premeal Insulin 12 units
-Coverage with SSI
-Diabetes nurse practitioner consulted as per prior hospitalist recommendation
#History of x 2
#History of tubal ligation
#History of endometriosis with prior laparoscopic surgery
#CAD status post CABG
-Denies chest pain
-Continue metoprolol
#CHF, unknown type
-Continue ARB/BB
#Essential hypertension
-Continue SHEET ROCK FINISHER metoprolol
-Was on losartan and valsartan, so valsartan was stopped
#Asthma
-Not in acute exacerbation
-Continue albuterol
-Patient sees pulmonary at [place] and said that in the past, she required some kind of intravenous medication for asthma prior to cardiac procedure
#Mitral valve replacement and redo MVR
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
#Hyperlipidemia
#Obesity due to excess calories
CODE STATUS: full code
DVT Prophylaxis: Heparin subq
On 06/24/25, I spoke in person with patient's sister, and I answered all of her questions and concerns to satisfaction.
Anticipated Discharge: > 48 hours
Subjective/Interval History
-
Date of Service: June 24, 2025
Patient was seen and examined. She reported the same abdominal discomfort and nausea, no other new symptoms or complaints.
Objective Data
-
Labs:
Laboratory Results
06/24/25
07:45
WBC 11.7 H
Hgb 10.7 L
Hct 33.6 L
Plt Count 341
Sodium 138
Potassium 4.9
Chloride 104
Carbon Dioxide 30
BUN 11
Creatinine 0.5 L
Glucose 174 H
Calcium 9.3
Vital Signs:
Vital Signs
Temp Pulse Resp BP Pulse Ox
98.1 F 86 18 150/87 97
06/24/25 07:00 06/24/25 07:00 06/24/25 07:00 06/24/25 07:00 06/24/25 07:00
I&O
06/23/25 06/24/25 06/25/25
06:59 06:59 06:59
Intake Total 360 / 360 1440 / 1440
Balance 360 / 360 1440 / 1440
--- NOTE | 2025-06-24 12:59 | CON.PUL ---
Consultation
Consultation Request
Date/Time Consultation Requested: 06/24/25
Date/Time Consultation Performed: 06/24/25
Performing Provider: Ana Maria
Reason for Consultation: Preop
Medical History
-
History of Present Illness:
Patient is a 55-year-old female with previous history of endometriosis, type 2 diabetes, CAD status post CABG, congestive heart failure, asthma on Biologics presenting with ongoing nausea/vomiting, lower abdominal pain, fever, weight loss 30 pounds.
She was noted to have a bilateral complex adnexal lesion suspicious for abscesses on her CT abdomen/pelvis. Underwent underwent IR percutaneous drainage on 06/22/2025. Appendicitis with periappendiceal abscess cannot be excluded, general surgery
was consulted as well. We are asked for preoperative evaluation given her history of asthma maintained on Biologics. She follows with Dr. Morocho at [facility] for severe persistent asthma. She has not had pulmonary function testing in many years
due to it triggering cough complaints. Records are not available for review.
Allergies / Home Medications
Allergies
Allergy/AdvReac Type Severity Reaction Status Date / Time
cefaclor (From Ceclor) Allergy Hives and Verified 06/20/25 16:36
throat
closing
cephalexin (From Keflex) Allergy Hives and Verified 06/20/25 16:36
throat
closing
clarithromycin (From Biaxin) Allergy Itching Verified 06/20/25 16:36
Penicillins Allergy Hives and Verified 06/20/25 16:36
throat
closing
(teenagera)
Home Medications
�Medication �Instructions �Recorded �Confirmed �Last Taken �Type
acetaminophen 325 mg tablet 650 mg PO QID 06/19/25 06/19/25 06/19/25 History
(Tylenol)
albuterol sulfate 90 mcg/actuation 2 puff inhalation R Q6HPRN PRN sob 06/19/25 06/19/25 Unknown History
aerosol inhaler
evolocumab 140 mg/mL subcutaneous 140 mg SC Q14D 06/19/25 06/19/25 8 Days Ago History
pen injector (Repatha SureClick) ~06/11/25
insulin aspart U-100 100 unit/mL 18 sliding scale dose SC AC 06/19/25 06/19/25 06/19/25 History
(3 mL) subcutaneous pen (Novolog
FlexPen U-100 Insulin aspart)
insulin degludec 100 unit/mL (3 18 unit SC BID 06/19/25 06/19/25 06/18/25 History
mL) subcutaneous pen (Tresiba
FlexTouch U-100 insulin)
losartan 25 mg tablet 25 mg PO QPM 06/19/25 06/19/25 06/18/25 History
metoprolol succinate 25 mg 25 mg PO DAILY 06/19/25 06/19/25 06/19/25 History
tablet,extended release 24 hr
(Toprol XL)
prochlorperazine maleate 10 mg 10 mg PO BIDPRN PRN nausea 06/19/25 06/19/25 Unknown History
tablet (Compazine)
tezepelumab-ekko 210 mg/1.91 mL 210 mg SC Q4W 06/19/25 06/19/25 05/14/25 History
(110 mg/mL) subcutaneous pen
injector (Tezspire)
valsartan 40 mg tablet 40 mg PO HS 06/19/25 06/19/25 06/18/25 History
Review of Systems
Vitals / Labs / Diagnostic Testing
Vital Signs
Temp Pulse Resp BP Pulse Ox
98.1 F 86 18 150/87 97
06/24/25 07:00 06/24/25 07:00 06/24/25 07:00 06/24/25 07:00 06/24/25 07:00
Lab Data
06/24/25 07:45
06/24/25 07:45
Microbiology
06/19/25 21:52 Blood/Venous Blood Culture - Preliminary
No Growth in 4 days- Final report to follow
06/19/25 21:44 Blood/Venous Blood Culture - Preliminary
No Growth in 4 days- Final report to follow
06/20/25 13:06 Vagina Genital Culture - Final
Streptococcus agalactiae
Barbara albicans
06/22/25 13:30 Abscess Anaerobic Culture - Preliminary
Culture pending. Anaerobic cultures are examined after 3
days incubation. Additional information to follow.
06/22/25 13:30 Abscess Wound Culture - Preliminary
No growth
06/22/25 13:30 Abscess Gram Stain - Preliminary
Diagnostic Testing:
Assessment
-
Patient is a 55-year-old female with previous history of endometriosis, type 2 diabetes, CAD status post CABG, congestive heart failure, asthma on Biologics presenting with ongoing nausea/vomiting, lower abdominal pain, fever, weight loss 30 pounds.
She was noted to have a bilateral complex adnexal lesion suspicious for abscesses on her CT abdomen/pelvis. Underwent underwent IR percutaneous drainage on 06/22/2025. Appendicitis with periappendiceal abscess cannot be excluded, general surgery
was consulted as well. We are asked for preoperative evaluation given her history of asthma maintained on Biologics 06/24/25.
Severe persistent asthma on Tezspire
Bilateral complex adnexal lesion suspicious for abscesses status post IR drainage 06/22/2025
Concurrent periappendiceal abscess with possible appendicitis
Abdominal pain
Fever
Nausea-vomiting/weight loss
Leukocytosis
Anemia
Hyperkalemia
Hyperglycemia
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
x 2
Tubal ligation
Endometriosis with prior laparoscopic surgery
Type 2 diabetes
CAD status post CABG
CHF
s/p mitral valve replacement and redo MVR
Asthma on Tezspire, follows with Dr Rashawn Sanchez
History of hemorrhagic CVA last year @ [facility]
Plan
No oxygen was needed on admission, currently saturating >90% on RA
She has no history of chronic hypoxemia at baseline
Prior history of lung disease is noted--
She follows with Dr. Morocho at [facility] for severe persistent asthma.
She has not had pulmonary function testing in many years due to it triggering cough complaints.
Records are not available for review--we will request records
She is maintained on Tezspire as OP, and generally is well controlled
Presumably her asthma is severe persistent given the use of Biologics, she has not had PFTs in many years
She has declined testing at this time
She is not maintained on routine inhalers for her asthma, she generally has well-known triggers which she avoids
Prior CXR/CT not available for review, we can obtain baseline study-on CT AP report, pericardial cyst noted with recommendation to obtain CT Chest
Other imaging reviewed--CT abdomen pelvis reviewed, lung bases are clear
She has prior known history of congestive heart failure
No prior echo for review
Surgical team has also requested cardiac evaluation
She has possible appendicitis and/or adnexal collection that is currently receiving IV antibiotics
Status post IR drainage 06/22/2025 with cultures pending
Her genital culture does show Streptococcus agalactiae--ID following
We are asked for preoperative evaluation
She is likely moderate risk given her history of severe persistent asthma but well-controlled on Biologics
She will continue her test prior treatment while inpatient
We will request medical records to better assess her risk while inpatient
She may end up being discharged with option to pursue surgery as an outpatient, she would then speak with her outpatient senior compensation analyst for more accurate risk assessment
FU OP Pulmonary At [facility], Dr Morocho
We will follow
Diagnostic Data
Chest X-Ray:
CT Scan: AP 06/20/25- Stable presumed fluid collections in the pelvis. Limited evaluation without IV contrast. Nonvisualization of the appendix. Again these findings may be due to acute appendicitis with periappendiceal abscess formation or pelvic
inflammatory disease. Necrotic masses due to malignancy cannot be excluded. If imaged again, a CT examination with oral and IV contrast is recommended.
Hepatomegaly. Stable. Mild diffuse bladder wall thickening. This can be seen with cystitis and bladder outlet obstruction. New. Probable pericardial cyst. Nonurgent chest CT examination with IV contrast recommended when the patient is able
Pelvis MRI 06/24/25- Persistent visceral pelvic/adnexal lesions, as described. Right adnexal structure suspicious for hydrosalpinx. However, remains difficult to exclude the possibility of fluid/cystic distention of the appendix. Left adnexal
structure appears complex and more difficult to characterize. However, this appears separate from the left ovary. Therefore, cystic or necrotic ovarian neoplasm or tubo-ovarian abscess is felt to be unlikely. Given the proximity to the uterus, this
could represent exophytic uterine or broad ligament leiomyoma, possibly complicated by degeneration/necrosis.
Minor ascites. Mild edema is noted along the course of the left ischial coccygeus muscle and fascia. Uncertain etiology.
Echo:
PFT's: (Declined)
Reports and relevant images were personally reviewed.
Total time spent on this consultation __55__ minutes which includes review of history, physical exam, medications, laboratory data, personal review of imaging, extensive review of outpatient records, discussion with care team and respiratory therapy.
--- NOTE | 2025-06-24 13:04 | CM ---
Following up on patient. MD team not sure when discharge will happen and unsure of if this patient will need IV antibiotics or not.
CM Carlos met with patient to touch base. Patient aware that Case Management is following. Patient stated that she uses [facility] for for what previous CM wrote for B/P monitoring. Caroline was informed if she needs home IV Abx then we will arrange
with [facility] infusion company, but will wait for recommendations for the MD team.
No IMM needed and will follow
Plan: possibly home with Home IV Abx, but with [facility] services- referral was alread made.
--- NOTE | 2025-06-24 14:32 | CON.CAR ---
Addendum entered and electronically signed by Cristian Guerra MD 06/24/25 16:27:
I saw and examined the patient.
The Hardware Designer's note was reviewed and I agree with the note.
Comment:
GEN: No distress, awake, Ox3
HEENT: supple, anicteric, mmm
LUNGS: CTA, no wheezes/rales
CV: Reg, S1/S2, 1/6 syst LSB, no gallop
ABD: soft, BS+, NT/ND
EXT: No edema
NEURO: Gross non-focal
SKIN: No rash
Plan:
55-year-old female with complex past medical history including diabetes, asthma, CABG/bioprosthetic MVR in 2017 with redo bioprosthetic MVR in 02/2025. She presents for continued evaluation regarding abdominal pains, fevers, and appendicitis. We
were asked to evaluate her as a preop evaluation prior to possible general and [facility] surgery for appendectomy and bilateral salpingo-oophorectomy.
She overall remains functional did very well after her second open heart surgery in February. She has no chest pains or shortness of breath and can perform 4 metabolic equivalents.
EKG reveals left bundle branch block. We will obtain records from her primary full stack java developer Dr. Hdz regarding catheterization prior to redo MVR and a recent echo to evaluate mitral valve.
No clear signs of volume overload.
Continue metoprolol, losartan, and aspirin. Will review records as to why not on a statin.
I see no clear contraindication to her surgery. After obtaining her records we will be able to better with stratify her. She likely will be moderate risk.
Original Note:
Consultation
Consultation Request
Date/Time Consultation Performed: 06/23/25
Requesting Provider: Dr. Byrnes
Performing Provider: Ingrid Dodson PA-C for Dr. Guerra
Reason for Consultation: preop eval
Medical History
-
Chief Complaint: abd pain, N/V
History of Present Illness:
Patient is a 55-year-old female with complex past medical history including type 2 diabetes which has been poorly controlled, lupus, asthma, endometriosis, history of hemorrhagic stroke, history of heart attack in 2018 resulting in 'the bottom part
of my heart not working', CABG and MVR in 2018, with recent redo bioprosthetic MVR 02/[address] Riley at [facility]. Her primary full stack java developer is Dr. Palmer. She denies history of arrhythmia or cardiomyopathy to her knowledge. She reports she
then had admission to [facility] for possible appendicitis and DKA which was treated with antibiotic therapy only. She reports there was concern for abscesses by imaging at [facility]. She reports since that time has had continued lower
abdominal pain as well as intermittent fevers. After extensive work up, she is now planned for B/L salpingo-oophorectomy and appendectomy. Surgical date unknown at this time. Cardiology consulted for preop evaluation. She reports getting some SOB at
times with going up stairs, however states this is improved since prior to her surgery. She also relays she has history of CHF, however her lasix was stopped after her surgery as she was not felt to need it. She reports losing 30 pounds in the last
month or so related to her abdominal processes. She does also relay that during her admission to [facility] was noted to have a LBBB by EKG, new since MVR surgery. This was then followed up by her primary full stack java developer, and it remained by
repeat EKG.
PMH:
CAD with OK 2018
CABG and bioprosthetic MVR 2018
redo bioprosthetic MVR 02/26/2025 at [facility], Dr. Riley
LBBB, recent
History of hemorrhagic CVA
DM2, poorly controlled
lupus
Asthma
Endometriosis
Past Medical History
Past Medical History: Other (in HPI)
Social History
Tobacco: Non-Smoker
Alcohol: None
Drug: None
Personal:
Living: With Family
Employment: Disabled
Allergies / Home Medications
Allergy/AdvReac Type Severity Reaction Status Date / Time
cefaclor (From Ceclor) Allergy Hives and Verified 06/20/25 16:36
throat
closing
cephalexin (From Keflex) Allergy Hives and Verified 06/20/25 16:36
throat
closing
clarithromycin (From Biaxin) Allergy Itching Verified 06/20/25 16:36
Penicillins Allergy Hives and Verified 06/20/25 16:36
throat
closing
(teenagera)
�Medication �Instructions �Recorded �Confirmed �Type
acetaminophen 325 mg tablet 650 mg PO QID 06/19/25 06/19/25 History
(Tylenol)
albuterol sulfate 90 mcg/actuation 2 puff inhalation R Q6HPRN PRN sob 06/19/25 06/19/25 History
aerosol inhaler
evolocumab 140 mg/mL subcutaneous 140 mg SC Q14D 06/19/25 06/19/25 History
pen injector (Repatha SureClick)
insulin aspart U-100 100 unit/mL 18 sliding scale dose SC AC 06/19/25 06/19/25 History
(3 mL) subcutaneous pen (Novolog
FlexPen U-100 Insulin aspart)
insulin degludec 100 unit/mL (3 18 unit SC BID 06/19/25 06/19/25 History
mL) subcutaneous pen (Tresiba
FlexTouch U-100 insulin)
losartan 25 mg tablet 25 mg PO QPM 06/19/25 06/19/25 History
metoprolol succinate 25 mg 25 mg PO DAILY 06/19/25 06/19/25 History
tablet,extended release 24 hr
(Toprol XL)
prochlorperazine maleate 10 mg 10 mg PO BIDPRN PRN nausea 06/19/25 06/19/25 History
tablet (Compazine)
tezepelumab-ekko 210 mg/1.91 mL 210 mg SC Q4W 06/19/25 06/19/25 History
(110 mg/mL) subcutaneous pen
injector (Tezspire)
valsartan 40 mg tablet 40 mg PO HS 06/19/25 06/19/25 History
Review of Systems
-
History Source: Patient and Family
All other systems: Negative unless noted
Physical Exam
Vital Signs
Temp Pulse Resp BP Pulse Ox
98.1 F 86 18 150/87 97
06/24/25 07:00 06/24/25 07:00 06/24/25 07:00 06/24/25 07:00 06/24/25 07:00
Lab Results
06/24/25 07:45
06/24/25 07:45
Physical Exam
General: No Apparent Distress and Comfortable
HEENT: Normocephalic, Anicteric and Moist Mucous Membranes
Respiratory: Clear and Non Labored Respirations
Cardiac: S1/S2 and Regular Rhythm
GI: Soft, Non Distended and Normal Bowel Sounds
Musculoskeletal: No Clubbing, No Cyanosis and No Edema
Skin: Warm and Dry
Neuro: AO x 3
Impression / Plan
-
Primary Sail Cutter: Dr. Palmer of [place] [phone]
CT Surgeon: [facility]
Assessment:
Presentation with N/V, abd pain
Bilateral adnexal collections, possibly abscess, s/p pelvic fluid aspiration 06/22/25
Concern for perforated appendicitis
Leukocytosis
CAD with OK 2017
CABG and bioprosthetic MVR 2017
redo bioprosthetic MVR 02/26/2025 at [facility], Dr. Riley
LBBB, recent
History of CHF, unknown type
History of hemorrhagic CVA
DM2, poorly controlled, with severe hyperglycemia and history of DKA
Hypertension
Hyperlipidemia
lupus
Asthma
Endometriosis with history of laparoscopic surgery
Plan:
- Patient with complex medical history as listed above presented with nausea vomiting and abdominal pain. By pelvic MRI (report reviewed by me 06/24) noted to have evidence for bilateral adnexal collections, in addition to recent admission to
[facility] for suspected perforated appendicitis and is undergoing workup with plan for possible surgical intervention per general surgery/[facility]. s/p pelvic fluid aspiration 06/22/25 with culture pending. Cardiology consulted for
preoperative evaluation
- Check EKG. she reports a recent finding of left bundle branch block which she was not noted to have presurgically
- Requested records from primary full stack java developer office for review
- She reports no recent chest pain and states that she has some degree of chronic shortness of breath related to her asthma and history of CHF. overall this has been better since her surgery, although at times she still has some dyspnea with doing
steps
- She is not presently on telemetry, would recommend placing if plans for surgery this admission
- She does not appear to have any present evidence of acute volume overload, reporting recent 30 pound weight loss in the setting of poor appetite related to abdominal pain and nausea
- She reports she is on a baby aspirin as an outpatient, however this is not listed on her outpatient med list. Will add and this should continue
- Would recommend strict diabetic control moving forward
- Given complex cardiac history, she will be elevated cardiovascular risk for any procedures, however risk is not prohibitive as felt to be necessary
- Discussed with patient and family at bedside
Data Reviewed
-
MRI: Report Reviewed by me
Labs: Labs Reviewed by me
Old Records: Requested
--- NOTE | 2025-06-24 14:56 | W.PN.ID1 ---
Date of Service
Date of Service: June 24, 2025
Today's Communication
Continue meropenem for now.
Assessment / Plan
# Bilateral adnexal complex collections
# Leukocytosis - waxes and wanes
# Uncontrolled DM A1c 14
# Anaphylaxis to PCN, cephalosporin
- blood cx's neg to date
- Genital GC/Chlamydia negative.
- Genital cx GBS colonization
- 06/22 IR aspiration of RLQ/pelvic fluid - 3cc clear fluid. CX neg
-Anticipate dc further meropenem 500mg IV q6 (d5).
- 06/24 Pelvic MRI: R adnexal structure suspicious for hydrosalpinx; left adnexal structure possible exophytic uterine or leiomyoma
- For eventual diagnostic laparoscopy.
- Remains on meropenem (d5)
# PmHx
Diabetes mellitus
Asthma
Hemorrhagic CVA
CAD status post CABG
Mitral valve replacement 2018 with redo bio-MVR 02/2025
Endometriosis, history of laparoscopic surgery
x 2
Tubal ligation
Chief Complaint
-: Other (pelvic abscess)
Vital Signs / Physical Exam
Vital Signs
Vital Signs
Temp Pulse Resp BP Pulse Ox
98.1 F 86 18 150/87 97
06/24/25 07:00 06/24/25 07:00 06/24/25 07:00 06/24/25 07:00 06/24/25 07:00
Objective Data
Lab Data
Lab Results
06/24/25 07:45
06/24/25 07:45
Estimated Creat Clear 101 ml/min 06/24/25 07:45
Lactic Acid 1.3 mmol/L (0.7-2.0) 06/19/25 11:24
Total Bilirubin 0.4 mg/dl (0.2-1.3) 06/20/25 08:01
AST 21 U/L (14-36) 06/20/25 08:01
ALT 16 U/L (0-35) 06/20/25 08:01
Alkaline Phosphatase 147 U/L (38-126) H 06/20/25 08:01
Most recent labs reviewed.
Micro Results:
06/22/25 13:30 Wound Culture - Preliminary
Abscess No growth
Gram Stain - Preliminary
06/19/25 21:52 Blood Culture - Preliminary
Blood/Venous No Growth in 4 days- Final report to follow
06/19/25 21:44 Blood Culture - Preliminary
Blood/Venous No Growth in 4 days- Final report to follow
06/20/25 13:06 Genital Culture - Final
Vagina Streptococcus agalactiae
Barbara albicans
06/22/25 13:30 Anaerobic Culture - Preliminary
Abscess Culture pending. Anaerobic cultures are examined after 3
days incubation. Additional information to follow.
06/19/25 23:53 MRSA Screen - Final
Nose No Methicillin Resistant Staphylococcus aureus isolated.
06/20/25 13:07 Chlamydia trachomatis (PCR) - Final
Endo-cervical Neisseria gonorrhoeae (PCR) - Final
06/24/25 Pelvis MRI: Persistent visceral pelvic/adnexal lesions, as described. Right adnexal structure suspicious for hydrosalpinx. However, remains difficult to exclude the possibility of fluid/cystic distention of the appendix.
Left adnexal structure appears complex and more difficult to characterize. However, this appears separate from the left ovary. Therefore, cystic or necrotic ovarian neoplasm or tubo-ovarian abscess is felt to be unlikely. Given the proximity to the
uterus, this could represent exophytic uterine or broad ligament leiomyoma, possibly complicated by degeneration/necrosis. Minor ascites. Mild edema is noted along the course of the left ischial coccygeus muscle and fascia. Uncertain etiology.
06/20/25 CT a/p with oral contrast only: Stable presumed fluid collections in the pelvis. Limited evaluation without IV contrast. Nonvisualization of the appendix. Again these findings may be due to acute appendicitis with periappendiceal abscess
formation or pelvic inflammatory disease. Necrotic masses due to malignancy cannot be excluded. If imaged again, a CT examination with oral and IV contrast is recommended.
06/19/25 CT a/p with IV contrast: Limited by lack of enteric contrast material with unopacified small and large bowel. Bilateral pelvic low-attenuation/complex fluid structures, as described. Possible considerations include abscess formation, which
may be associated with pelvic inflammatory disease in the proper clinical setting. On the right, appendicitis with periappendiceal abscess cannot be excluded. Alternatively, the appearance may be related to bilateral ovarian cysts and/or cystic
ovarian neoplasms.
06/19/25 Pelvic/transvaginal ultrasound: The ovaries are not definitively visualized. There are complex lesions of the bilateral adnexa measuring 3.0 x 3.3 x 3.1 cm on the right and 5.4 x 3.7 x 7.6 cm on the left. These appear to demonstrate central
free fluid and peripheral vascularity which are suspicious for abscesses.
Care Review
Plan reviewed with: Physician (Dr. Byrnes)
--- NOTE | 2025-06-24 15:15 | W.PN.OBG.DWH ---
Today's Communication / Plan
-
cont present mgmt
Assessment/Plan
-
Impression: Bilateral adnexal masses with etiologies including hydrosalpinx, abscesses, possible degenerating fibroid on left. Endometriosis hx. Recent appendicitis.
Plan: Agree best to stabilize medically and may need surgical intervention in ner future.
Agree with obtaining cardiac and pulm eval while in hospital.
Subjective Data
-
Late entry note
Pt seen this afternoon.
Feeling better, improved.
No fevers.
Objective Data
-
Laboratory Results
06/24/25 07:45
06/24/25 07:45
Vital Signs
Temp Pulse Resp BP Pulse Ox
98.1 F 86 18 150/87 97
06/24/25 07:00 06/24/25 07:00 06/24/25 07:00 06/24/25 07:00 06/24/25 07:00
VSS afeb BS's improved
abd: soft, Tender to palpation bilat Lower abdomen, no guarding or rebound
ext: no calf pain
MRI imaging: left adnexal mass 5.7 x 4.5 x 4.6cm.Slightly thickened, slightly irregular enhancing peripheral rim up to 6.5 mm, slight irregular inner and outer margins. There is a structure in the left adnexa 2.5 x 1.4 cm appearing to represent
normal left ovary. Left adnexal structure appears complex, difficult to characterize but appears separate from the left ovary. Radiology felt cystic or necrotic ovarian neoplasm or tubo-ovarian abscess is felt unlikely. Given proximity to uterus,
felt could represent exophytic uterine or broad ligament leiomyoma possibly complicated by degeneration/necrosis.
Right adnexal structure suspicious for hydrosalpinx.
However remains difficult to exclude the possibility of fluid/cystic distention of the appendix.
Endometrium difficult to delineate, no endometrial thickening is appreciated. At the anterior margin of the lower uterine segment there is minor metallic susceptibility artifact related to previous . Small lymph nodes present without
enlarged adenopathy. Trace free fluid.
[2025-06-24 15:54] VITALS: BP 132/78
[2025-06-24 16:19] LABS: Glucose - Point of Care 232 mg/dl (70-99)
[2025-06-24] MEDS: LOW STRENGTH ASPIRIN 81 MG PO (16:21)
[2025-06-24] MEDS: NOVOLOG FLEXPEN-HIGH RESISTANCE 4 UNITS SC (16:23)
[2025-06-24 17:32] VITALS: BMI 30.9
[2025-06-24] MEDS: COZAAR 25 MG PO (17:34)
[2025-06-24 20:41] LABS: Glucose - Point of Care 234 mg/dl (70-99)
[2025-06-24] MEDS: MONISTAT 7 VAGINAL CREAM 1 APPLIC VAG (22:53)
[2025-06-24 22:54] VITALS: BP 117/68
[2025-06-25 03:55] VITALS: BMI 30.9
[2025-06-25] MEDS: STERILE WATER FOR INJECTION 10 ML IV (05:19)
[2025-06-25] MEDS: MERREM 500 MG IV (05:19)
[2025-06-25] MEDS: HEPARIN SC (07:32)
[2025-06-25 07:50] LABS: Glucose - Point of Care 245 mg/dl (70-99)
[2025-06-25 08:09] VITALS: BP 141/85
--- NOTE | 2025-06-25 08:09 | W.PN.UPDATE ---
Update Note
Progress Note Update
Records obtained and reviewed from [facility]. She has history of CAD status post CABG including CIFUENTES to LAD, SVG to PDA, SVG to diagonal, BERTA clip in 2018 at the time of her first bioprosthetic MVR. She had cardiac
catheterization 02/23/2025 and appears no interventions performed. Her redo MVR 02/26/2025 was robotic. She was last seen in the office on 06/03/2025. She was preoperatively cleared at that time for appendectomy and felt to be clinically stable from
cardiology standpoint. Her left bundle branch block, although relatively new, was noted to not be changed from her prior visit. She had echocardiogram performed in setting of new LBBB finding 04/14/25 which showed normally functioning bioprosthetic
mitral valve with no regurgitation and mean gradient of 5.7 mmHg with preserved LV function EF 55 to 60%, with apical septal hypokinesis grade 2 diastolic dysfunction, trace TR and mild pulmonary hypertension. was felt to be satisfactory candidate
for planned surgery.
Based on above information, patient felt to be moderate but acceptable cardiovascular risk to proceed with planned procedure.
OP follow up with Dr. Palmer of [facility] if additional risk assessment required.
[2025-06-25] MEDS: NOVOLOG FLEXPEN-HIGH RESISTANCE 4 UNITS SC (08:14)
[2025-06-25] MEDS: TOPROL XL 25 MG PO (08:15)
[2025-06-25] MEDS: LANTUS 0.32 UNITS SC (08:15)
[2025-06-25] MEDS: NOVOLOG FLEXPEN 13 UNITS SC ×3 (08:15→14:50)
[2025-06-25] MEDS: LOW STRENGTH ASPIRIN 81 MG PO (08:15)
[2025-06-25] MEDS: TYLENOL 650 MG PO ×2 (08:16→12:18)
[2025-06-25 08:41] LABS: Hematocrit 35.2 % (37.0-47.0); Hemoglobin 11.6 g/dL (12.0-16.0); Mean Corp Hgb Conc. 33.0 g/dL (33.0-37.0); Mean Corpuscular Volume 83.0 fL (81.0-99.0); Nucleated Red Blood Cells % 0 %; Platelet Count 346 10^3/uL (130-400); Red Cell Dist. Width 15.9 % (11.5-14.5)
[2025-06-25] MEDS: NOVOLOG FLEXPEN SC (08:51)
--- NOTE | 2025-06-25 09:16 | W.PN.HOSP.TC ---
Today's Communication/Plan
-
Discharge today
Assessment / Plan
Assessment / Plan
Physical Exam
Gen: NAD, AAOx3.
HEENT: Normocephalic. Atraumatic.
Neck: supple.
CV: Remains RRR, +S1/S2
Resp: Remains CTAB
Abd: Remains +BS, soft, ND. Mild tenderness at the bilateral lower quadrants.
Skin: Warm. Dry.
Neuro: CN 2-12 intact, non-focal.
Psych: Normal mood and affect.
Assessment/Plan
#Presentation with abdominal pain
#Bilateral adnexal collections possibly abscess
-Patient okay to be discharged today as per agreement with all specialists involved, without antibiotics, and outpatient surgery scheduling
-CT abdomen pelvis with IV only�showed bilateral pelvic low-attenuation/complex fluid structures which include abscess formation may be associated pelvic inflammatory disease versus bilateral ovarian cysts or ovarian neoplasms,, appendicitis with
periappendiceal abscess cannot be excluded
-Pelvic ultrasound showed complex lesions of the bilateral adnexa which appear to demonstrate central free fluid and peripheral vascularity suggestive abscesses
-CA125 pending, considering a possible ovarian tumor
-Gynecology saw in c/s and discussed with IR. B/L adnexal collections likely abscesses related to h/o appendicitis.
-I discussed on 06/23/25 patient's case with OBGYN physician Dr. Coy Fofana, who recommended: 1) [facility]/Onc consult; 2) Repeat Imaging tomorrow to confirm improvement (MRI ordered)
-I consulted Sensitizer/Onc (Dr. Carmen) on 06/23/25, and I spoke with Dr. Carmen -- and he recommended: 1) MRI pelvis with and without contrast (ordered); 2) Discussing/re-consulting case with general surgery so
that they can plan a potential surgery for the abdominal abscesses/masses and to further evaluate pelvic structures; 3) Bringing obgyn physician Dr. Egan into the case; 4) Cardiology pre-op risk
stratification given patient's history of heart valve surgery and CABG; 5) Bringing the Diabetes Mellitus/Glucose values under better control
-Dr. Carmen's suspicion for malignancy is very low
-Per Dr. Sosa's (surgeon's) request, I consulted both cardiology and pulmonary (patient needed IV med before surgery in the past for her asthma) for pre-op clearance
-Pelvis MRI with persistent visceral pelvic/adnexal lesions, right adnexal structure suspicious for hydrosalpinx, complex left adnexal structure
-genital cultures with Few Group B Streptococcus agalactiae, Few Presumptive Barbara albicans and Many Usual Cervical/vaginal ada.
-chlamydia, gonorrhea negative
-ID input appreciated, stop all antibiotics /Meropenem to increase intraoperative culture yield, if infection noted in operating room.
-Continue Monistat 7 for 5 more nights
-Blood cultures remain negative
-Pain medication with Dilaudid as needed, Zofran as needed
-Right abscess drainage by IR today 06/22/25 -- aspiration of a right lower quadrant/right pelvic fluid collection, yielding 3 mL of clear fluid -- due to the nonpurulent nature of the fluid, drainage catheter was not placed. Left
sided fluid collection was not well seen, and difficult to distinguish from bowel and bladder, no attempt made on left.
#T2DM with severe hyperglycemia
#History of DKA
-A1c 14.0%
-Glucose range is currently in goal at 140 to 180
-Continue [employer] Lantus, but increase to 32 units BID
-Premeal Insulin 13 units on discharge
-Patient should try to be consistent with amount of carbohydrate at each meal targeting no less than 30 to no more than 45 grams per meal.
-Coverage with SSI
-Diabetes nurse practitioner consulted as per prior hospitalist recommendation
#History of x 2
#History of tubal ligation
#History of endometriosis with prior laparoscopic surgery
#CAD status post CABG
-Denies chest pain
-Continue metoprolol
-Follow-up with outpatient cardiology for risk stratification
#CHF, unknown type
-Continue ARB/BB
#Essential hypertension
-Continue [employer] metoprolol
-Was on losartan and valsartan, so valsartan was stopped
#Asthma
-Not in acute exacerbation
-Continue albuterol
-Patient sees pulmonary at [place] and said that in the past, she required some kind of intravenous medication for asthma prior to cardiac procedure
#Mitral valve replacement and redo MVR
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
#Hyperlipidemia
#Obesity due to excess calories
CODE STATUS: full code
DVT Prophylaxis: Heparin subq
On 06/24/25, I spoke in person with patient's sister, and I answered all of her questions and concerns to satisfaction.
More than 30 minutes spent in discharge including
Final examination of the patient
Summarizing hospital stay
Instructions for continuing care to all relevant caregivers
Preparation of discharge records, prescriptions, and referral forms
Total time spent (in minutes): 43
Anticipated Discharge: Today
Subjective/Interval History
-
Date of Service: June 25, 2025
Patient was seen and examined. She reported feeling okay, denied any new symptoms or complaints.
Objective Data
-
Labs:
Laboratory Results
06/25/25 06/25/25
07:29 08:48
WBC 7.3
Hgb 11.6 L
Hct 35.2 L
Plt Count 346
Sodium Cancelled Pending
Potassium Cancelled Pending
Chloride Cancelled Pending
Carbon Dioxide Cancelled Pending
BUN Cancelled Pending
Creatinine Cancelled Pending
Glucose Cancelled Pending
Calcium Cancelled Pending
Vital Signs:
Vital Signs
Temp Pulse Resp BP Pulse Ox
98 F 86 16 141/85 96
06/25/25 08:09 06/25/25 08:09 06/25/25 08:09 06/25/25 08:09 06/25/25 08:09
I&O
06/24/25 06/25/25 06/26/25
06:59 06:59 06:59
Intake Total 1440 / 1440 1260 / 1260
Balance 1440 / 1440 1260 / 1260
[2025-06-25 10:12] LABS: Blood Urea Nitrogen 14 mg/dl (7-17); Calcium 9.7 mg/dl (8.4-10.2); Carbon Dioxide 28 mmol/L (22-30); Chloride 103 mmol/L (98-107); Estimated Creatinine Clearance 102 ml/min; Glucose 201 mg/dl (70-99); Potassium 5.0 mmol/L (3.5-5.1); Sodium 135 mmol/L (135-145); eGFR > 60.00
--- NOTE | 2025-06-25 10:14 | W.PN.ID1 ---
Date of Service
Date of Service: June 25, 2025
Today's Communication
DC further meropenem (d6) to increase intraoperative cx yield, if infection noted in OR.
Assessment / Plan
# Bilateral adnexal complex collections
# Leukocytosis - waxes and wanes
# Uncontrolled DM A1c 14
# Anaphylaxis to PCN, cephalosporin
- blood cx's neg to date
- Genital GC/Chlamydia negative.
- Genital cx GBS colonization
- 06/22 IR aspiration of RLQ/pelvic fluid - 3cc clear fluid. CX neg
-Anticipate dc further meropenem 500mg IV q6 (d5).
- 06/24 Pelvic MRI: R adnexal structure suspicious for hydrosalpinx; left adnexal structure possible exophytic uterine or leiomyoma
- For eventual diagnostic laparoscopy in about 1 week
- DC further meropenem (d6) to increase intraoperative cx yield, if infection noted in OR.
# PmHx
Diabetes mellitus
Asthma
Hemorrhagic CVA
CAD status post CABG
Mitral valve replacement 2018 with redo bio-MVR 02/2025
Endometriosis, history of laparoscopic surgery
x 2
Tubal ligation
Chief Complaint
-: Other (pelvic abscess)
Subjective / Review of Systems
Wants to go home. Has pulm appt tomorrow for surgical clearance. Feels a bit better.
Vital Signs / Physical Exam
Vital Signs
Vital Signs
Temp Pulse Resp BP Pulse Ox
98 F 86 16 141/85 96
06/25/25 08:09 06/25/25 08:09 06/25/25 08:09 06/25/25 08:09 06/25/25 09:32
Physical Exam
Gastrointestinal: Soft and Tender (R>L lower pelvis)
Neurological: AO x 3
Objective Data
Lab Data
Lab Results
06/25/25 07:29
06/25/25 09:35
Estimated Creat Clear 102 ml/min 06/25/25 09:35
Lactic Acid 1.3 mmol/L (0.7-2.0) 06/19/25 11:24
Total Bilirubin 0.4 mg/dl (0.2-1.3) 06/20/25 08:01
AST 21 U/L (14-36) 06/20/25 08:01
ALT 16 U/L (0-35) 06/20/25 08:01
Alkaline Phosphatase 147 U/L (38-126) H 06/20/25 08:01
Most recent labs reviewed.
Micro Results:
06/19/25 21:52 Blood Culture - Final
Blood/Venous No Growth - Final Report
06/19/25 21:44 Blood Culture - Final
Blood/Venous No Growth - Final Report
06/22/25 13:30 Wound Culture - Preliminary
Abscess No growth
Gram Stain - Preliminary
06/20/25 13:06 Genital Culture - Final
Vagina Streptococcus agalactiae
Barbara albicans
06/22/25 13:30 Anaerobic Culture - Preliminary
Abscess Culture pending. Anaerobic cultures are examined after 3
days incubation. Additional information to follow.
06/19/25 23:53 MRSA Screen - Final
Nose No Methicillin Resistant Staphylococcus aureus isolated.
06/20/25 13:07 Chlamydia trachomatis (PCR) - Final
Endo-cervical Neisseria gonorrhoeae (PCR) - Final
06/24/25 Pelvis MRI: Persistent visceral pelvic/adnexal lesions, as described. Right adnexal structure suspicious for hydrosalpinx. However, remains difficult to exclude the possibility of fluid/cystic distention of the appendix.
Left adnexal structure appears complex and more difficult to characterize. However, this appears separate from the left ovary. Therefore, cystic or necrotic ovarian neoplasm or tubo-ovarian abscess is felt to be unlikely. Given the proximity to the
uterus, this could represent exophytic uterine or broad ligament leiomyoma, possibly complicated by degeneration/necrosis. Minor ascites. Mild edema is noted along the course of the left ischial coccygeus muscle and fascia. Uncertain etiology.
06/20/25 CT a/p with oral contrast only: Stable presumed fluid collections in the pelvis. Limited evaluation without IV contrast. Nonvisualization of the appendix. Again these findings may be due to acute appendicitis with periappendiceal abscess
formation or pelvic inflammatory disease. Necrotic masses due to malignancy cannot be excluded. If imaged again, a CT examination with oral and IV contrast is recommended.
06/19/25 CT a/p with IV contrast: Limited by lack of enteric contrast material with unopacified small and large bowel. Bilateral pelvic low-attenuation/complex fluid structures, as described. Possible considerations include abscess formation, which
may be associated with pelvic inflammatory disease in the proper clinical setting. On the right, appendicitis with periappendiceal abscess cannot be excluded. Alternatively, the appearance may be related to bilateral ovarian cysts and/or cystic
ovarian neoplasms.
06/19/25 Pelvic/transvaginal ultrasound: The ovaries are not definitively visualized. There are complex lesions of the bilateral adnexa measuring 3.0 x 3.3 x 3.1 cm on the right and 5.4 x 3.7 x 7.6 cm on the left. These appear to demonstrate central
free fluid and peripheral vascularity which are suspicious for abscesses.
Care Review
Plan reviewed with: Physician (Dr. Byrnes)
--- NOTE | 2025-06-25 11:09 | W.PN.UPDATE ---
Update Note
Progress Note Update
Records not yet obtained from [facility], but if patient is discharged risk would be better assessed by her OP physician Dr Morocho
We will sign off at this time, please call with questions.
--- NOTE | 2025-06-25 11:10 | PN.DE.MGMTRT ---
Insulin Management
- -
06/25/2025 Diabetes Management Consult Follow up
Patient admitted 06/19 with abdominal pain - s/p ct of abdomen - possible bilateral pelvic abscesses, possible perforated appendix. PMH CAD s/p CABG, diabetes, chg, mitral valve repair, csection x 2, asthma, lupus, hemorrhagic CVA in 2023. Prior
to admission was taking tresiba 18 units BID and novolog 18 units AC via ss. A1C on admission 14%. Cr .5, eGFR > 60 today.
Patient is awake, alert and oriented, feeling better today able to discuss diabetes care. States she sees Dr. Brandy spence in [facility] for ongoing care. She uses the [employer] G7 CGM. States A1C is about 9% usually. States she has had diabetes
since 08/2003.
Glucose range yesterday 169 to 234, Fasting glucose 245 (patient had started to eat meal before glucose obtained).
Will increase lantus to 32 units BID with novolog 13 units AC. Discussed with patient to try to be consistent with amount of CHO at each meal targeting no less than 30 to no more than 45 grams per meal.
Discussed with nurse.
Will follow.
Diabetes History
- -
Type of Diabetes: 2 requiring insulin
Pre-Admission Diabetes Regimen
06/25/25 06/25/25
07:29 09:35
Creatinine Cancelled 0.5 L
Lab Results
Hemoglobin A1c 14.0 % (4.0-5.6) H 06/20/25 08:01
Insulin Pump Settings
IP Diabetes Regimen
06/24/25 06/24/25 06/25/25
16:17 20:40 07:29
Glucose Cancelled
POC Glucose 232 H 234 H
06/25/25 06/25/25
07:49 09:35
Glucose 201 H
POC Glucose 245 H
Meal type: Lunch
Amount consumed: 100%
Patient Education
[2025-06-25 11:34] LABS: Glucose - Point of Care 157 mg/dl (70-99)
[2025-06-25] MEDS: NOVOLOG FLEXPEN-HIGH RESISTANCE 2 UNITS SC (11:36)
--- NOTE | 2025-06-25 12:46 | W.PN.OBG.DWH ---
Today's Communication / Plan
-
anticipate dc
pulmonary consult as outpt
pt will schedule surgery pending above
Assessment/Plan
-
bilataeral adnexal masses
ca 125 17, aspiration R cystic mass neg
recent appendicitis
suboptimal control diabetes
MVR: apprec cardiology consult
Subjective Data
-
eating, feeling better, anticipating dc
Objective Data
-
Laboratory Results
06/25/25 07:29
06/25/25 09:35
Vital Signs
Temp Pulse Resp BP Pulse Ox
98 F 86 16 141/85 96
06/25/25 08:09 06/25/25 08:09 06/25/25 08:09 06/25/25 08:09 06/25/25 09:32
finger stick 157
--- NOTE | 2025-06-25 14:16 | CM ---
CM reviewed chart, patient seen bedside with family, for discharge today. Patient confirms transportation home from family. CM will update [facility] on d.c status. CM will continue to follow for all discharge planning needs.
Plan; Home with [facility]:
[2025-06-25 14:39] LABS: Glucose - Point of Care 122 mg/dl (70-99)
[2025-06-25] MEDS: NOVOLOG FLEXPEN-HIGH RESISTANCE 1 UNITS SC (14:51)
[2025-06-25 15:38] VITALS: BP 123/77
--- NOTE | 2025-06-25 16:21 | W.DCSUMMARY ---
Discharge Summary
Discharge Data
Date of Admission: 06/19/25
Date of Discharge: 06/25/25
Total time spent discharging patient (in min): 43
-
Pending Results: No
Hospital Course
55-year-old female with past medical history of x 2, tubal ligation, endometriosis with prior laparoscopic surgery, type 2 diabetes, CABG and MVR in 2018, with recent redo bioprosthetic MVR 02/26/2025 , lupus?, asthma, history of hemorrhagic
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 She was recently admitted to [facility] on June 02, 2025
for the same symptoms of fever, right lower quadrant abdominal pain and vomiting. While she was in DKA she was confused and told the doctors that she had her appendix removed. She was later told that she had perforated appendix but needed to wait
until the inflammation went down before appendectomy could be performed. She continued to have symptoms of nausea and vomiting and right lower quadrant abdominal pain and fever of 100.9. She stated that her blood sugars have recently been in the
200s; patient was noted to have uncontrolled Diabetes Mellitus. General surgery was consulted around the time of admission given bilateral adnexal masses with concern for questionable pelvic abscesses versus other pelvic complex masses. Patient was
started on antibiotics with Gentamicin, Clindamycin and Doxycycline, but this regimen was later changed to Meropenem after Infectious Disease was consulted.
Gynecology was also consulted. Genital Gonorrhea and Chlamydia tests were negative. Genital culture showed Few Group B Streptococcus agalactiae, Few Presumptive Barbara albicans and Many Usual Cervical/vaginal ada. Therefore, Monistat was ordered
(Fluconazole was not ordered given patient's comorbid cardiac conditions/potential cardiac interactions). Later Preliminary School Psychologist-computer network support specialist Dr. Uvaldo Carmen was consulted, and he recommended cardiology consult (given patient's significant cardiac
comorbidities) for risk stratification for potential surgery with exploration of patient's abdominopelvic cavity to further evaluate what was going on (specifically, diagnostic laparoscopy in order to better evaluate pelvic structures, possibly
consider bilateral salpingo-oophorectomy and appendectomy for definitive management) -- he also recommended bring general surgery onboard again, the plan was general surgery and gynecology also helping with potential surgery. Pulmonary consultation
was placed for pre-op risk stratification given patient's use of IV medicine (for her Asthma) prior to surgery in the past.
On 06/22/25, patient had CT guidance which was used to access the right lower quadrant fluid collection; approximately 3 cc of clear fluid was aspirated. Due to the nonpurulent nature of the fluid, no drain was placed. Patient' s left sided
abdominopelvic fluid collection was not well seen, and difficult to distinguish from bowel and bladder -- therefore no attempt was made on left. The aspirated fluid's culture was negative. Blood culture was also negative.
Diabetes Nurse Practitioner was consulted and patient's Insulin Regimen was intensified. At the time of discharge, patient mentioned that she can adjust her home Insulin for better Diabetes control.
Patient preferred to be discharged and schedule her surgery on an outpatient basis, and go to her systems developer and guitar repairer outpatient for further discussion. Infectious Disease mentioned antibiotics could be stopped on discharge, and this
would also increase the future intraoperative culture yield.
Discharge Plan
-
Patient Disposition: Home with Home Care
Discharge Diagnosis/Procedures: #Presentation with abdominal pain
#Bilateral adnexal collections possibly abscess
#Type 2 Diabetes Mellitus with severe hyperglycemia
#History of Diabetic Ketoacidosis
#History of x 2
#History of tubal ligation
#History of endometriosis with prior laparoscopic surgery
#Coronary Artery Disease status post CABG
#Bioprosthetic MVR in 2018 with redo Bioprosthetic MVR in 02/2025
#Essential hypertension
#Asthma (has needed special intravenous medication prior to surgery in the past)
#Mitral valve replacement and redo MVR
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
#Hyperlipidemia
#Obesity due to excess calories
Condition: Fair
Diet: Diabetic, Carb Controlled
Other Services: VN
Activity Restrictions/Additional Instructions:
TO PATIENT'S NURSE: PLEASE PRINT OUT ALL OF PATIENT'S IMAGING RESULTS FROM THIS HOSPITALIZATION AND ALL NOTES AND PROGRESS NOTES FROM THIS HOSPITALIZATION AND PROVIDE THEM TO THE PATIENT AT THE TIME OF DISCHARGE ON 06/25/25.
Follow-up with your pulmonary and cardiology physicians as we discussed.
As discussed, call 911 and return to the ER right away if you develop any new symptoms.
Referrals:
Abhishek Medina MD [Family Provider, Family Practice] - in less than 1 week
Referral Note: Needs optimized Diabetes Mellitus control prior to surgery in 1 to 2 weeks
Best Sosa MD [Active, Surgical] - in less than 1 week
Referral Note: Needs manager combination-onc surgery (with general surgeon's assistance) set up outpatient
Uvaldo Carmen MD [Active, VE TEACHER Oncology] - in less than 1 week
Referral Note: Needs manager combination/onc surgery set up outpatient as discussed during hospitalization
Additional Discharge Medication Instructions: Miconazole is a new medication.
Your premeal Insulin Aspart has been reduced to 13 units.
Adjust your Tresiba dosage to maintain glucose in appropriate range as discussed. Discussed this with your outpatient doctor how to do that.
Tezspire -- ask your primary care provider when you should resume this medication.
Compazine and Valsartan have been stopped.
Prescriptions:
New
aspirin 81 mg Tablet,Chewable
81 mg PO DAILY Qty: 30 0RF
miconazole nitrate 2 % Cream
1 applic vaginal HS 5 Days Qty: 45 0RF
Rx Instructions:
5 more nights starting the night of 06/25/25
Continued
acetaminophen [Tylenol] 325 mg Tablet
650 mg PO QID
losartan 25 mg Tablet
25 mg PO QPM
metoprolol succinate [Toprol XL] 25 mg Tablet Extended Release 24 Hr
25 mg PO DAILY
albuterol sulfate 90 mcg/actuation Hfa Aerosol Inhaler
2 puff INHALATION R Q6HPRN PRN (Reason: sob)
insulin degludec [Tresiba FlexTouch U-100] 100 unit/mL (3 mL) Insulin Pen
18 unit SC BID
Repatha SureClick 140 mg/mL Pen Injector
140 mg SC Q14D
Tezspire 210 mg/1.91 mL (110 mg/mL) Pen Injector
210 mg SC Q4W
Changed
insulin aspart U-100 [Novolog FlexPen U-100 Insulin] 100 unit/mL (3 mL) Insulin Pen
13 sliding scale dose SC AC Qty: 0 0RF
Discontinued
prochlorperazine maleate [Compazine] 10 mg Tablet
10 mg PO BIDPRN PRN (Reason: nausea)
valsartan 40 mg Tablet
40 mg PO HS
Discharge Orders:
Discharge Patient (As Directed); Ordered 06/25/25
Ordered By: Carlos Alberto Byrnes
Discharge Date and Time
Discharge Date/Time: 06/25/25 16:52
Print Language: SYRIAN
== END 2025-06-25 16:52 | disposition home health service (06) | DRG 757 ==
LOC: 4 WEST ACU 21:12
PROVIDERS: Physician Assistant; Registered Nurse; Student in an Organized Health Care Education/Training Program; ADMITTING PHYSICIAN Hospitalist; ATTENDING PHYSICIAN Hospitalist; CONSULT PHYSICIAN Internal Medicine; CONSULT PHYSICIAN Internal Medicine Cardiovascular Disease; CONSULT PHYSICIAN Internal Medicine Infectious Disease; CONSULT PHYSICIAN Obstetrics & Gynecology Gynecologic Oncology; CONSULT PHYSICIAN Surgery; EMERGENCY PHYSICIAN Emergency Medicine; FAMILY PHYSICIAN Family Medicine; OTHER PHYSICIAN Obstetrics & Gynecology
DX: N70.93 Salpingitis and oophoritis, unspecified (principal); K35.219 Acute appendicitis with generalized peritonitis, with abscess, unspecified as to perforation; E87.1 Hypo-osmolality and hyponatremia; Z98.891 History of uterine scar from previous surgery; Z80.3 Family history of malignant neoplasm of breast; Z95.1 Presence of aortocoronary bypass graft; I50.9 Heart failure, unspecified; Z86.73 Personal history of transient ischemic attack (TIA), and cerebral infarction without residual deficits; I11.0 Hypertensive heart disease with heart failure; Z88.0 Allergy status to penicillin; Z88.1 Allergy status to other antibiotic agents; Z79.4 Long term (current) use of insulin; Z98.51 Tubal ligation status; E78.00 Pure hypercholesterolemia, unspecified; E11.65 Type 2 diabetes mellitus with hyperglycemia; D64.9 Anemia, unspecified; E66.09 Other obesity due to excess calories; Z68.30 Body mass index [BMI] 30.0-30.9, adult; E87.5 Hyperkalemia; I25.10 Atherosclerotic heart disease of native coronary artery without angina pectoris; I25.2 Old myocardial infarction; I44.7 Left bundle-branch block, unspecified; J45.50 Severe persistent asthma, uncomplicated; Z79.899 Other long term (current) drug therapy; Z80.1 Family history of malignant neoplasm of trachea, bronchus and lung; Z95.3 Presence of xenogenic heart valve
CPT/HCPCS: 49406; 72197; 74176; 74177; 76830; 76856; 80048; 80053; 81003; 81015; 82010; 82805; 82962; 83036; 83605; 83690; 83735; 85025; 86304; 87040; 87070; 87075; 87077; 87147; 87205; 87491; 87591; 93005; 96372; 99152; 99153; 99285; A9575; Q9967